=== PATIENT | female | born 1955 | race African-American/Black ===

== ENCOUNTER 2020-05-24 10:20 | Outpatient (CLI) | payer MEDICARE, MEDICAID, SELFPAY ==
[2020-05-24 10:44] LABS: Basophils Percent Auto 0.4 % (0.2-1.2); Eosinophils Absolute Auto 0.4 K/mm3 (0-0.3); Eosinophils Percent Auto 4.5 % (0-4.4); Hematocrit 23.5 % (37.0-47.0); Hemoglobin 7.1 g/dL (12.0-15.0); Immature Granulocyte Absolute 0.02 K/mm3 (0.00-0.031); Immature Granulocyte Percent A 0.2 % (0-0.5); Immature Reticulocyte Fraction 36.3 % (3.0-15.9); Lymphocytes Absolute Auto 2.01 K/mm3 (0.9-3.2); Lymphocytes Percent Auto 24.9 % (18.3-44.2); Mean Corpuscular HGB Conc 30.2 g/dl (32-36); Mean Corpuscular Hemoglobin 24.6 pg (26-34); Mean Corpuscular Volume 81.3 fl (80-100); Mean Platelet Volume 8.9 fl (7.4-10.4); Monocytes Absolute Auto 0.7 K/mm3 (0.1-0.6); Monocytes Percent Auto 8.1 % (2.6-8.5); Neutrophils Percent Auto 61.9 % (45.5-73.1); Platelet Count Result 348 k/mm3 (150-375); Red Blood Count 2.89 M/mm3 (4.2-5.4); Red Cell Distribution Width 16.5 % (11.5-14.5); Reticulocyte Hemoglobin Conten 24.7 pg (28.2-35.7); Reticulocyte Percent 1.67 % (0.7-4.3); Reticulocytes Absolute 0.05 B/L (32.2-175.7); White Blood Count 8.1 K/mm3 (4.5-10.0)
[2020-05-24 12:27] LABS: Iron 16 ug/dL (37-170)
[2020-05-24 12:33] LABS: Alanine Aminotransferase 9 U/L (4-35); Alkaline Phosphatase 128 U/L (38-126); Anion Gap 7 mmol/L (8-16); Aspartate Amino Transferase 18 U/L (14-36); Bilirubin,Total 0.3 mg/dL (0.2-1.3); Blood Urea Nitrogen 57 mg/dL (7-17); Calcium 9.7 mg/dL (8.4-10.2); Carbon Dioxide 28 mmol/L (22-30); Chloride 103 mmol/L (98-107); Estimated Glomerular Filt Rate 34; Glucose 108 mg/dL (65-105); Lactate Dehydrogenase 335 U/L (313-618); Potassium 5.2 mmol/L (3.4-5.0); Sodium 138 mmol/L (137-145)
[2020-05-24 12:37] LABS: Percent Iron Saturation 4 % (20-50)
[2020-05-24 13:07] LABS: Ferritin 8.36 ng/mL (11.1-264)
[2020-05-24 13:37] LABS: Folic Acid 9.4 ng/mL (2.76->20)
[2020-05-29 21:41] LABS: Erythropoietin (EPO) 90.5 mIU/mL (2.6-18.5)
== END 2020-05-24 10:21 | disposition home or self-care (01) ==
PROVIDERS: PCP Family Medicine; Visit Provider Internal Medicine Hematology & Oncology
DX: D64.9 Anemia, unspecified (principal)
CPT/HCPCS: 36415; 80053; 82607; 82668; 82728; 82746; 83540; 83550; 83615; 85025; 85046

== ENCOUNTER 2020-05-29 14:28 | Inpatient (IN) | payer MEDICARE, MEDICAID, SELFPAY ==
[2020-05-29] VITALS (8 sets, daily range): BP systolic 113–154; BP diastolic 58–76; PULSE 39–64; RESP 15–21; TEMP 35.9–36.8; O2SAT 98–100; BMI 42.4
--- NOTE | ~2020-05-29 | XR_ITS ---
EXAMINATION: XR chest 1V portable EXAM DATE: 05/29/2020 14:55 INDICATION: Episode of unresponsiveness. TECHNIQUE: Portable AP frontal chest x-ray was obtained. Comparison is made to prior examination from 07/23/2019. FINDINGS: Sternotomy wires are present without findings to suggest sternal dehiscence. There is mild cardiomegaly. No confluent consolidation, pneumothorax or pleural effusion suspected. There are mild bony degenerative changes. There is no significant interval change. IMPRESSION: 1. Cardiomegaly. Reviewed, dictated and finalized at location B. IMPRESSION: 1. Cardiomegaly.
--- NOTE | ~2020-05-29 | US_ITS ---
EXAMINATION: US renal BI EXAM DATE: 05/30/2020 08:42 INDICATION: Renal failure. TECHNIQUE: Multiple grayscale and Doppler images of the kidneys were obtained (by a technologist who performed the scan) and subsequently reviewed. There is no prior study for comparison. FINDINGS: Right kidney: There is normal contour and echogenicity. It measures 10.8 x 4.6 x 5.6 centimeters. T here are no focal renal lesions identified. There is no hydronephrosis. Left kidney: There is normal contour and echogenicity. It measures 10.0 x 4.7 x 5.5 centimeters. Th ere are no focal renal lesions identified. There is no hydronephrosis. Moreno catheter within a collapsed bladder. IMPRESSION: 1. Sonographically unremarkable kidneys. Reviewed, dictated and finalized at location B.
--- NOTE | ~2020-05-29 | CT_ITS ---
EXAMINATION: CT brain wo con DATE: 05/29/2020 14:39 INDICATION: Stroke protocol. Altered mental status. TECHNIQUE: Computed tomography (CT) of the head was performed without intravenous contrast. Sagittal and coronal reconstructions were performed. The mA was adjusted according to patient size. Iterative reconstruction technique was employed. The dose-length product was 605.33 mGy-cm. COMPARISON: None FINDINGS: No acute intracranial hemorrhage, acute infarction or abnormal extra axial fluid collection. There is minimal scattered white matter hypoattenuation consistent with chronic small vessel ischemic disease . Ventricles are normal and symmetric. No mass/mass effect. Changes of left intraocular lens replacem ent. Mild mucosal thickening in the left maxillary sinus. The orbits and mastoid air cells are normal . Intracranial calcified cerebral atherosclerosis is noted. IMPRESSION: 1. No acute intracranial process. 2. Minimal scattered white matter hypoattenuation consistent with chronic small vessel ischemic disea se. Reviewed, dictated and finalized at location A. IMPRESSION: 1. No acute intracranial process. 2. Minimal scattered white matter hypoattenuation consistent with chronic small vessel ischemic disease.
--- NOTE | 2020-05-29 14:30 | ED.SYNCOPE ---
HPI - Syncope General Chief Complaint: Suspected CVA Stated Complaint: ?CVA Time Seen by Provider: 05/29/20 14:29 Source: patient and EMS Mode of arrival: EMS Limitations: no limitations History of Present Illness HPI narrative: Patient is a 64-year-old female with a history of diastolic heart failure, previous CVA, GI bleed, anemia who presents for evaluation of syncopal episode. Patient was at a podiatry appointment and arrival this afternoon when she suddenly was noted to become unresponsive with garbled speech per staff. EMS was called, at the time of their arrival, patient was confused, lethargic. Glucose check was within normal limits. Patient was unable to provide any history at the time of EMS arrival. Vital signs are stable. No seizure-like activity noted per EMS. Patient transferred to this facility, noted to have large episode of emesis on the way in route. The time of my assessment, patient is alert and oriented to person, place, and to time. She is denying any pain. No headache, chest pain, lightheadedness or dizziness. No abdominal pain. She denies any shortness of breath. Patient does not recall these events. Related Data Home Medications Medication Instructions Recorded Confirmed Antoinette PatelikPen U-100 Insulin 25 unit SUBCUT QAM 07/23/19 05/29/20 albuterol sulfate [Ventolin HFA] 2 puff INHALATION Q4-6H 07/23/19 05/29/20 atorvastatin 20 mg PO DAILY 07/23/19 05/29/20 budesonide-formoterol [Symbicort] 2 puff INHALATION BID 07/23/19 05/29/20 furosemide 60 mg PO DAILY 07/23/19 05/29/20 gabapentin 300 mg PO TID 07/23/19 05/29/20 hydrocodone-acetaminophen 5 - 325 tablet PO Q6H PRN 07/23/19 05/29/20 isosorbide mononitrate 15 mg PO DAILY 07/23/19 05/29/20 metformin 1,000 mg PO BID 07/23/19 05/29/20 metoprolol tartrate 25 mg PO BID 07/23/19 05/29/20 apixaban 5 mg tablet 5 mg PO BID 04/24/20 05/29/20 Allergies Allergy/AdvReac Type Severity Reaction Status Date / Time No Known Allergies Allergy Unknown Verified 10/06/20 15:14 Review of Systems Review of Systems: Narrative: CONSTITUTIONAL: Denies fever CARDIOVASCULAR: Denies chest pain RESPIRATORY: Denies cough or dyspnea. GASTROINTESTINAL: Denies abdominal pain SKIN: Denies rash MUSCULOSKELETAL: Denies back pain NEUROLOGIC: Denies headache [facility] Past Medical History Medical History Acute blood loss anemia Anxiety Arthritis Blood in stool CHF (congestive heart failure) COPD (chronic obstructive pulmonary disease) Degenerative joint disease (DJD) of lumbar spine (~2019) Diabetes mellitus type 2 in obese H/O gastroesophageal reflux (GERD) History of heart attack Inflammatory arthritis (~1996) Myalgia Vitamin D deficiency Social History Social History Smoking packs per day: 0.5 Smoking cigarettes per day: 10.0 Years smoked: 50 Smoking pack-years: 25.00 Smoking status: Former smoker Tobacco type: cigarettes Smoking end date: 05/29/20 Additional smoking assessment comments: currently smokes a few cigarettes a week Alcohol intake: current Drinks per week: 2 Substance use: current Substance use type: painkillers Other substance usage details: NORCO TID-CHRONIC BACK PAIN Gender identity (if verbalized by the patient): Female Sexual Orientation (if Verbalized by the Patient): Straight or Heterosexual Spiritual care concerns: Yes (JEHOVAH WITNESS) Agree to blood products: No Exam Narrative: Exam Narrative: GENERAL: Awake, alert, conversant HEAD: Normocephalic, atraumatic. EYES: PERRLA and EOMI. ENT: Nares clear, no rhinorrhea or epistaxis. Mucous membranes moist. NECK: Supple. CHEST: No respiratory distress, breathing even and non labored HEART: Regular rate, sinus rhythm ABDOMEN:Non distended, non tender EXTREMITIES: Normal range of motion. No edema. SKIN: Warm, dry, no rash. NEURO:No focal deficits. Alert and
--- NOTE | 2020-05-29 14:31 | ECG_ITS ---
Measurements Intervals [place] Rate: 50 P: 44 DE: 182 QRS: -32 QRSD: 116 T: 38 QT: 490 QTc: 450 Interpretive Statements SINUS BRADYCARDIA WITH MARKED RHYTHM IRREGULARITY, POSSIBLE NON-CONDUCTED PAC, SA BLOCK, AV BLOCK, OR SINUS PAUSE ATRIAL PREMATURE COMPLEX LEFT AXIS DEVIATION INCOMPLETE RIGHT BUNDLE BRANCH BLOCK BORDERLINE ST-T WAVE ABNORMALITY- DIFFUSE LEADS BASELINE ARTIFACT- I, III, AVR, AVL, AVF ABNORMAL ECG Electronically Signed On 05-29-2020 15:04:34 CDT by Blayne Avendaño D.O.
[2020-05-29 14:48] LABS: Glucose Point of Care 252 (65-105)
[2020-05-29 14:54] LABS: Basophils Percent Auto 0.3 % (0.2-1.2); Eosinophils Absolute Auto 0.2 K/mm3 (0-0.3); Eosinophils Percent Auto 1.9 % (0-4.4); Immature Granulocyte Absolute 0.04 K/mm3 (0.00-0.031); Immature Granulocyte Percent A 0.4 % (0-0.5); Lymphocytes Absolute Auto 2.73 K/mm3 (0.9-3.2); Mean Corpuscular HGB Conc 30.1 g/dl (32-36); Mean Corpuscular Hemoglobin 24.9 pg (26-34); Mean Corpuscular Volume 82.7 fl (80-100); Mean Platelet Volume 9.6 fl (7.4-10.4); Monocytes Absolute Auto 0.8 K/mm3 (0.1-0.6); Monocytes Percent Auto 8.4 % (2.6-8.5); Neutrophils Absolute Auto 5.9 K/mm3 (1.3-6.7); Nucleated Red Blood Cells Perc 0.2 % (0.0-0.2); Platelet Count Result 353 k/mm3 (150-375); Red Blood Count 2.37 M/mm3 (4.2-5.4); Red Cell Distribution Width 16.7 % (11.5-14.5); White Blood Count 9.8 K/mm3 (4.5-10.0)
[2020-05-29 14:57] LABS: Hematocrit 19.6 % (37.0-47.0); Hemoglobin 5.9 g/dL (12.0-15.0)
--- NOTE | 2020-05-29 15:05 | PC.NURSE ---
Pt states she is unable to provide urine sample and is refusing straight cath at this time
[2020-05-29] MEDS: SODIUM CHLORIDE 0.9% IV 1,000 ML 999 ML IV CONT ×2 (15:13→15:34)
[2020-05-29] MEDS: ONDANSETRON INJ 4 MG/2 ML VIAL IV PUSH (15:13)
[2020-05-29 15:15] LABS: Alanine Aminotransferase 12 U/L (4-35); Alkaline Phosphatase 104 U/L (38-126); Anion Gap 15 mmol/L (8-16); Aspartate Amino Transferase 19 U/L (14-36); Bilirubin,Total 0.4 mg/dL (0.2-1.3); Blood Urea Nitrogen 87 mg/dL (7-17); Calcium 8.4 mg/dL (8.4-10.2); Carbon Dioxide 15 mmol/L (22-30); Chloride 98 mmol/L (98-107); Estimated CRCL calculation 14 ml/min; Estimated Glomerular Filt Rate 11; Glucose 239 mg/dL (65-105); Sodium 128 mmol/L (137-145)
[2020-05-29 15:18] LABS: Troponin I < 0.012 ng/mL (0.000-0.034)
[2020-05-29] MEDS: INSULIN HUMAN REGULAR (*BKC) 100 UNITS/ML 10 UNITS IV PUSH ×2 (15:34→23:13)
[2020-05-29] MEDS: CALCIUM GLUCONATE 1,000 MG/10 ML VIAL 2000 MG IV PUSH (15:34)
[2020-05-29] MEDS: DEXTROSE 50% 25 GM/50 ML SYRINGE IV PUSH ×2 (15:34→23:13)
[2020-05-29] MEDS: SODIUM BICARBONATE 8.4% 50 MEQ/50 ML VIAL IV PUSH (15:34)
[2020-05-29 16:12] LABS: NT Pro B Type Natriuretic Pept 9620 PG/ML (5-100)
[2020-05-29] MEDS: SODIUM POLYSTYRENE SULFONONATE 15 GM/60 ML BTL 30 GM PO (16:12)
[2020-05-29 16:43] LABS: INR 1.4; Prothrombin Time 16.3 Seconds (11.1-14.7)
[2020-05-29 16:44] LABS: Partial Thromboplastin Time 27.2 SECONDS (22.3-36.8)
[2020-05-29 16:46] LABS: D Dimer 0.41 ug/mL (<0.48)
[2020-05-29 16:47] LABS: Anion Gap 13 mmol/L (8-16); Blood Urea Nitrogen 87 mg/dL (7-17); Calcium 8.6 mg/dL (8.4-10.2); Carbon Dioxide 19 mmol/L (22-30); Chloride 99 mmol/L (98-107); Estimated CRCL calculation 14 ml/min; Estimated Glomerular Filt Rate 11; Glucose 230 mg/dL (65-105); Potassium 6.3 mmol/L (3.4-5.0); Sodium 131 mmol/L (137-145)
[2020-05-29 18:07] LABS: Glucose Point of Care 144 (65-105)
--- NOTE | 2020-05-29 18:10 | ADMGEN ---
This patient, Kandi Perez, was admitted to Intensive Care Unit-6. Patient/family oriented to hospital policies and general routines including ID bracelet, bed and alarms, visiting hours, pain management, procedures, bathroom and other care routines, personal items, smoking policy, room service/diet, and visiting hours. Valuables list has been completed. Information on how to activate the Rapid Response Team has been discussed. Patient/Family are encouraged to report perceived risks to care and to ask questions if they do not understand what they are told or what they should do.
[2020-05-29 21:58] LABS: Hemoglobin 6.3 g/dL (12.0-15.0)
[2020-05-29 21:59] LABS: Hematocrit 20.5 % (37.0-47.0)
[2020-05-29 22:10] LABS: Anion Gap 11 mmol/L (8-16); Blood Urea Nitrogen 88 mg/dL (7-17); Calcium 8.5 mg/dL (8.4-10.2); Carbon Dioxide 18 mmol/L (22-30); Chloride 102 mmol/L (98-107); Estimated CRCL calculation 14 ml/min; Estimated Glomerular Filt Rate 11; Glucose 148 mg/dL (65-105); Potassium 6.7 mmol/L (3.4-5.0); Sodium 131 mmol/L (137-145)
--- NOTE | 2020-05-29 23:00 | PM.IMHP ---
H&P: HPI History of Present Illness Date/Time: 05/29/20 20:00 Chief complaint: Unresponsive episode. Narrative: Kandi Perez is a very pleasant 64-year-old female, one of Jehovah's witnesses, with history of coronary artery disease, diastolic congestive heart failure, pulmonary hypertension, peripheral arterial disease, ?irregular heartbeat? on Eliquis, history of GI bleeding including secondary to AV malformations, chronic anemia, hypertension, hyperlipidemia, type 2 diabetes mellitus, chronic kidney disease, and several other comorbidities who presented to the emergency department earlier today via EMS from her doctor's office for evaluation after an unresponsive episode. She is not a great historian with regards what transpired this morning's as she really cannot remember much, and as such some of this history is obtained via a review of her electronic medical records. 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 On EMS arrival her glucose was 179 and she was noted to have several episodes of emesis en route to the hospital. A code stroke was called and she was sent directly to CT scan, with no evidence of stroke. She was found to have an acute kidney injury with a BUN and creatinine of 87 and 4.90 and is noted that her BUN and creatinine were 57 and 1.80 just 5 days ago. Her hemoglobin was 7.1 at that time and today it is 5.9. She has noticed maybe decreasing urine output just today but nothing significant. She tries to stay hydrated and reports normal color urine. She has not had difficulties urinating and has never had problems with urinary retention. No lightheadedness or dizziness. She also denies chest pain, pleuritic pain, and palpitations. She denies acute shortness of breath. No history of venous thromboembolism. Her last bowel movement was Thursday and she reports that it was somewhat soft and large but she denies noticing dark stools or blood in the stool. With further questioning she does mention that she was started on amoxicillin late last week for an earache, she is nearly finished with that antibiotic and her earache has since resolved. She has been taking Tylenol for her earache, and never takes NSAIDs. She was also prescribed pentoxifylline for right leg claudication per Dr. Dow (vascular surgery) last Thursday but she has yet to start that medication. She also mentions having intermittent tingling in her right foot and notes that it has a tendency to go cold on occasion. Also of note, she has been having joint pain and apparently had a positive SANG for which she saw a mattress maker, who feels that she likely does not have lupus given lack of other findings. Of note, she was bradycardic on arrival to the emergency department in the 30s, with improvement in her heart rate after hyperkalemia was treated. Review of Systems Review of Systems: Narrative: Twelve systems were reviewed with pertinent positives and negatives as per HPI. No fever, chills, or sweats. Her headache and earache have improved with taking the amoxicillin. She denies sick contacts and recent travel. No exposure to those positive for COVID-19. She denies chest pain and palpitations. With her last admission in July 2019 her Eliquis was stopped due to profound anemia and occult GI bleeding due to AVMs however she is back taking that medication for unclear reasons. She denies melena hematochezia. No hematemesis. She has intermittent issues with lower extremity edema but that has been well controlled on diuretics and she has been more mindful of her diet. She denies confusion. Except as documented, all other systems were reviewed and are negative. [facility] Past Medical History Medical History (Updated 05/30/20 @ 00:15 by Fabi Austin PA-C) Anxiety Arthritis Chronic anemia She is a patient of Dr. Goodson and has received Venofer and Epogen i
[2020-05-29] MEDS: ALBUTEROL SULFATE NEB 2.5 MG/0.5 ML INH 5 MG INHALATION (23:09)
[2020-05-29] MEDS: CALCIUM GLUC 1,000 MG/NS 50 ML 1,000 MG/50 ML BAG 100 MG IVPB (23:13)
[2020-05-30] VITALS (16 sets, daily range): BP systolic 117–139; BP diastolic 46–68; PULSE 54–90; RESP 14–20; TEMP 36.6–36.9; O2SAT 94–100
--- NOTE | 2020-05-30 | ECHO_ITS ---
Patient Info Name: Kandi Perez Age: 64 years : 1955 Gender: Female Ht: 65 in Wt: 258 lbs BSA: 2.38 m2 HR: 75 bpm BP: 137 / 51 mmHg Heart Rhythm: Sinus Rhythm Technical Quality: Good Exam Date: 05/30/2020 10:34 AM Exam Location: [facility] Patient Status: Inpatient Admit Date: 05/29/2020 Staff Ordering Physician: Alistair Crespo MD Buttoner: Solitario Escudero RDCS Attending Provider: Edgar Mccrary MD Exam Type: CA echo doppler color flow Study Info Indications I50.9 - Heart failure, unspecified Complete two-dimensional, color flow and Doppler transthoracic echocardiogram is performed. Strain analysis performed. History/Risk Factors HFpEF; CAD s/p 2vCABG, HTN, Dm2, pHTN, CKD, cardiomegaly, syncope, COPD. Summary 1. Complete two-dimensional, color flow and Doppler transthoracic echocardiogram is performed. 2. Left ventricular chamber size and systolic function are normal with no regional wall motion abnormalities with an estimated ejection fraction of 65-70%. Mild LVH. Grade 2 diastolic dysfunction is present. There is some flattening of the interventricular septum during diastole suggestive of right ventricular volume overload. 3. Right ventricular chamber dimension is mildly enlarged with normal contractility. 4. Left atrial chamber dimension is severely enlarged. 5. Right atrial chamber dimension is mildly enlarged. 6. There is mild mitral valve regurgitation. 7. There is mild to moderate tricuspid valve regurgitation. 8. Moderate pulmonary hypertension, estimated pulmonary arterial systolic pressure is 54 mmHg. 9. Dilated inferior vena cava with <50% collapse upon inspiration consistent with elevated right atrial pressure, 10 mmHg. 10. 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 11. Normal sinus rhythm. Left Ventricle Left ventricular chamber dimension is normal. Left ventricular systolic function is normal, estimated at 65-70%. There is no increased left ventricular wall thickness. Left ventricular septal wall motion is normal. The left ventricular diastolic function is grade II diastolic dysfunction. Global longitudinal strain is normal at 19 %. Left ventricular chamber size and systolic function are normal with no regional wall motion abnormalities with an estimated ejection fraction of 65-70%. Mild LVH. Grade 2 diastolic dysfunction is present. There is some flattening of the interventricular septum during diastole suggestive of right ventricular volume overload. Right Ventricle Right ventricular chamber dimension is mildly enlarged with normal contractility. Right ventricular systolic function is normal. Left Atria Left atrial chamber dimension is severely enlarged. Right Atria Right atrial chamber dimension is mildly enlarged. Aortic Valve The aortic valve is trileaflet. There is no aortic valve sclerosis. There is no aortic valve stenosis. There is no aortic valve regurgitation. Pulmonic Valve The pulmonic valve is normal. There is no pulmonic valve stenosis. There is no pulmonic regurgitation. Mitral Valve The mitral valve has normal leaflets. There is no mitral valve stenosis. There is mild mitral valve regurgitation. Tricuspid Valve The tricuspid valve leaflets are normal. There is no significant tricuspid valve stenosis. There is mild to moderate tricuspid valve regurgitation. Moderate pulmonary hypertension, estimated pulmonary arter
[2020-05-30 02:09] LABS: Potassium 5.5 mmol/L (3.4-5.0)
[2020-05-30] MEDS: ALBUTEROL SULFATE (*SP) AEROSOL 1 PUFF 2 PUFF INHALATION ×4 (02:19→19:17)
[2020-05-30 05:14] LABS: Mean Corpuscular Hemoglobin 24.4 pg (26-34); Mean Corpuscular Volume 81.5 fl (80-100); Mean Platelet Volume 10.1 fl (7.4-10.4); Platelet Count Result 339 k/mm3 (150-375); Red Blood Count 2.54 M/mm3 (4.2-5.4); Red Cell Distribution Width 16.6 % (11.5-14.5); White Blood Count 10.8 K/mm3 (4.5-10.0)
[2020-05-30 05:30] LABS: Hemoglobin 6.2 g/dL (12.0-15.0)
[2020-05-30 05:31] LABS: Hematocrit 20.7 % (37.0-47.0)
[2020-05-30 05:36] LABS: Anion Gap 14 mmol/L (8-16); Blood Urea Nitrogen 84 mg/dL (7-17); Calcium 8.8 mg/dL (8.4-10.2); Carbon Dioxide 19 mmol/L (22-30); Chloride 102 mmol/L (98-107); Estimated CRCL calculation 13 ml/min; Estimated Glomerular Filt Rate 10; Glucose 137 mg/dL (65-105); Potassium 5.1 mmol/L (3.4-5.0); Sodium 135 mmol/L (137-145)
[2020-05-30 07:01] LABS: Add Urine Microscopic? NO; Appearance Urine Clear (Clear); Bilirubin Urine Negative (Negative); Blood Urine Negative (Negative); Color Urine Yellow (Yellow); Glucose Urine UA Negative (Negative); Ketones Urine Negative (Negative); Leukocyte Esterase Ur Negative LEU/UL (Negative); Nitrate Urine Negative (Negative); Protein Urine Negative (Negative); Urobilinogen Urine Negative mg/dL (<2.0)
[2020-05-30] MEDS: ISOSORBIDE MONONITRATE 15 MG TAB.ER.24H PO (09:50)
[2020-05-30] MEDS: SODIUM POLYSTYRENE SULFONONATE 15 GM/60 ML BTL PO (09:50)
[2020-05-30] MEDS: SODIUM BICARBONATE 8.4% 150 MEQ in DEXTROSE 5% 1,000 ML 950 ML 50 MEQ IV CONT (09:50)
[2020-05-30] MEDS: PANTOPRAZOLE 40 MG TABLET PO ×2 (09:50→21:56)
[2020-05-30] MEDS: GABAPENTIN 300 MG CAPSULE PO ×3 (09:50→17:16)
[2020-05-30] MEDS: ATORVASTATIN 20 MG TABLET PO (09:50)
[2020-05-30] MEDS: SODIUM BICARBONATE TAB 650 MG TABLET PO ×2 (09:53→17:16)
--- NOTE | 2020-05-30 10:36 | PM.CNNEP ---
Assessment and Plan Assessment and plan (1) Acute on chronic renal failure: Code(s): N17.9 - Acute kidney failure, unspecified; N18.9 - Chronic kidney disease, unspecified Status: Acute Assessment and Plan: the patient has chronic kidney disease. This is probably due to diabetes hypertension and vascular disease. She is being followed by a protective signal repairer currently. Her baseline creatinine is around 2. the patient has acute kidney injury as well. It is unclear what is causing this. I think she might have some dehydration as she has not been eating or drinking for the last few days and has continued to take her diuretics. She also has worsened anemia in spite of dehydration. So could have some sort of GI bleeding process. this is being evaluated by Dr. Doyle. She could have other issues such as glomerulonephritis because she does have a diagnosis of inflammatory arthritis. I doubt if this is the case in this setting but we can check some labs. Obstruction is always a possibility so we will get a renal ultrasound. (2) Acute hyperkalemia: Code(s): E87.5 - Hyperkalemia Status: Acute Assessment and Plan: The patient Had a high potassium. Possibly this is from blood in her intestines and her renal failure. This is improved now with Kayexalate. (3) Acute on chronic anemia: Code(s): D64.9 - Anemia, unspecified Status: Acute Assessment and Plan: The patient has anemia. This is being evaluated by hospitalist. Eliquis has been held. (4) Syncope: Qualifiers: Syncope type: unspecified Qualified Code(s): R55 - Syncope and collapse Code(s): R55 - Syncope and collapse Status: Acute Assessment and Plan: This is being evaluated by the hospitalist. Possibly due to dehydration and/or anemia? (5) Type 2 diabetes mellitus: Code(s): E11.9 - Type 2 diabetes mellitus without complications Status: Acute Assessment and Plan: On Accu-Cheks and sliding-scale insulin (6) Chronic obstructive pulmonary disease: Code(s): J44.9 - Chronic obstructive pulmonary disease, unspecified Status: Acute Assessment and Plan: getting supportive care (7) Vitamin D deficiency: Code(s): E55.9 - Vitamin D deficiency, unspecified Status: Acute Assessment and Plan: we can check a vitamin-D level (8) Inflammatory arthritis: Onset Date: ~1996 Code(s): M19.90 - Unspecified osteoarthritis, unspecified site Status: Acute Assessment and Plan: will check serology History of Present Illness Reason for Consult Consult date: 05/30/20 Chief Complaint Chief complaint: Unresponsive episode. History of Present Illness Narrative: Kandi is a very pleasant 64-year-old lady who has multiple medical problems including hypertension, chronic kidney disease under the care of Dr. Alexander with a baseline creatinine of around 2, COPD, coronary disease status post heart attack and a 2 vessel bypass, paroxysmal atrial fibrillation on Eliquis, congestive heart failure of the diastolic type,degenerative joint disease, hyperlipidemia, arthritis, peripheral vascular disease, TIA, diabetes, vitamin-D deficiency. She is a Quaker and so refuses blood transfusion. The patient is a difficult historian because she is so sleepy since she was up all night. The patient was at the molder setter's office today and had an unresponsive episode. They called EMS. They called a code stroke. She came to the ER and had a CT scan which was negative. The ER doctor felt that this was not stroke symptoms. She did some blood work and found that her creatinine had risen to around 4 and her hemoglobin had fallen to about 5.9. The patient was given some IV fluids for dehydration and was admitted to the ICU.1 The patient says that she has not been eating very well for the last week or so. She says that she is o
--- NOTE | 2020-05-30 10:49 | WPDCNINT ---
Assessment and Plan Assessment and plan (1) Acute on chronic anemia: Code(s): D64.9 - Anemia, unspecified Status: Acute Assessment and Plan: patient has history of chronic anemia but hemoglobin 5.9 on presentation and 6.2 at this time she is Hindu and and does not want blood transfusion at this time. I have asked her if she would be against transfusion even in life-threatening situation like hemorrhage she and she told me she will talk to her daughter and get back to me but as of now she does not want any transfusion due to her anabaptism believes. patient has chronic kidney disease and likely has chronic anemia and may have GI blood loss also. Will discuss with Nephrology regarding starting Epogen patient told me that she had GI workup done earlier this year and as per patient her EGD was negative she had a capsule camera endoscopy which was also negative and she had 2 polyps removed from her colonoscope. no obvious signs of bleeding but she has positive stool Hemoccult and does admit to having black stools. Continue IV PPI GI has been consulted (2) Hyperkalemia: Code(s): E87.5 - Hyperkalemia Status: Acute Assessment and Plan: patient treated with IV insulin dextrose and calcium. Bicarb was given potassium level has decreased to 5.1 this morning I will give additional dose of Kayexalate. Patient is also on IV fluids with bicarb. Recheck BMP later today (3) Acute on chronic renal failure: Code(s): N17.9 - Acute kidney failure, unspecified; N18.9 - Chronic kidney disease, unspecified Status: Acute Assessment and Plan: patient told me she has stage 3-4 chronic kidney disease at baseline With creatinine around 2. Patient presented with acute kidney injury which could be secondary to hypovolemia. patient seen by Nephrology continue cautious IV fluids with bicarb to treat hypokalemia and acidosis p.o. bicarb renal ultrasound was done this morning and results are pending additional workup for renal cause of acute kidney injury were ordered by Dr. Ramos monitor urine output and electrolytes may need dialysis (4) Chronic obstructive pulmonary disease: Code(s): J44.9 - Chronic obstructive pulmonary disease, unspecified Status: Acute Assessment and Plan: arsh Rmaires (5) Gastroesophageal reflux disease: Code(s): K21.9 - Gastro-esophageal reflux disease without esophagitis Status: Acute Assessment and Plan: PPI (6) Hypertension: Code(s): I10 - Essential (primary) hypertension Status: Acute Assessment and Plan: on p.o. beta-keyana and Imdur (7) Type 2 diabetes mellitus: Code(s): E11.9 - Type 2 diabetes mellitus without complications Status: Acute Assessment and Plan: metformin has been discontinued due to rising creatinine level sliding scale insulin patient is currently NPO (8) Diastolic congestive heart failure: Code(s): I50.30 - Unspecified diastolic (congestive) heart failure Status: Acute Assessment and Plan: cautious IV fluids due to worsening renal failure (9) Syncope: Qualifiers: Syncope type: unspecified Qualified Code(s): R55 - Syncope and collapse Code(s): R55 - Syncope and collapse Status: Acute Assessment and Plan: Definitive etiology unclear but most likely secondary to hypertension which may have resulted from anemia, hypovolemia and bradycardia from her hyperkalemia. Patient currently asymptomatic and on telemetry monitoring with no arrhythmia except PVCs. No neurological deficit at this time, patient alert oriented x3 bradycardia has resolved and hyperkalemia has improved ECHO is ordered head CT was negative Additional Plan DVT prophylaxis - SCDs Stress ulcer prophylaxis - PPI Nutrition - NPO at this time Code Status - Full Code Lead Caregiver Consult Note Consult d
--- NOTE | 2020-05-30 13:58 | PCOTNOTE ---
Attempted OT evaluation, but unable to complete at this time as patient currently getting an IV placed. Will attempt again later.
[2020-05-30 14:41] LABS: Anion Gap 10 mmol/L (8-16); Blood Urea Nitrogen 79 mg/dL (7-17); Calcium 8.3 mg/dL (8.4-10.2); Carbon Dioxide 23 mmol/L (22-30); Chloride 101 mmol/L (98-107); Estimated CRCL calculation 14 ml/min; Estimated Glomerular Filt Rate 12; Glucose 228 mg/dL (65-105); Potassium 4.7 mmol/L (3.4-5.0); Sodium 134 mmol/L (137-145)
[2020-05-30 14:42] LABS: Creatine Kinase 72 U/L (30-135)
[2020-05-30 14:45] LABS: Erythrocyte Sedimentation Rate > 140 mm/hr (0-20)
--- NOTE | 2020-05-30 14:45 | PM.IMPN ---
Progress Note: A&P Assessment and Plan (1) Syncope: Qualifiers: Syncope type: unspecified Qualified Code(s): R55 - Syncope and collapse Code(s): R55 - Syncope and collapse Status: Acute Assessment and Plan: probable multifactorial including hypovolemia, anemia, bradycardia with the hyperkalemia. (2) Acute on chronic renal failure: Code(s): N17.9 - Acute kidney failure, unspecified; N18.9 - Chronic kidney disease, unspecified Status: Acute Assessment and Plan: Probable all pre renal. Continue aggressive hydration and hold diuretics renal sonogram obtained also (3) Acute on chronic anemia: Code(s): D64.9 - Anemia, unspecified Status: Acute Assessment and Plan: iron and ferritin and foul 24 of May compatible with iron deficiency anemia. Obviously probably has some degree of anemia chronic disease with her renal failure also. Will replace IV iron and discussed with nephrology about Epogen Eliquis not to be restarted (4) Bradycardia: Code(s): R00.1 - Bradycardia, unspecified Status: Acute Assessment and Plan: thought secondary to hyperkalemia and has resolved with normalization of potassium TSH ordered (5) Hyperkalemia: Code(s): E87.5 - Hyperkalemia Status: Acute Assessment and Plan: secondary to renal failure. Kayexalate as needed and hydration (6) Diastolic congestive heart failure: Code(s): I50.30 - Unspecified diastolic (congestive) heart failure Status: Acute Assessment and Plan: repeat echo pending. Watch fluid status with aggressive hydration and continue beta-keyana with nitrate (7) Type 2 diabetes mellitus: Code(s): E11.9 - Type 2 diabetes mellitus without complications Status: Acute Assessment and Plan: continue sliding scale and Lantus, hold oral hypoglycemics (8) Hypertension: Code(s): I10 - Essential (primary) hypertension Status: Acute Assessment and Plan: pressure fair control continue low-dose metoprolol (9) Gastroesophageal reflux disease: Code(s): K21.9 - Gastro-esophageal reflux disease without esophagitis Status: Acute Assessment and Plan: continue PPI especially in light of history of guaiac-positive stool in the past (10) Chronic obstructive pulmonary disease: Code(s): J44.9 - Chronic obstructive pulmonary disease, unspecified Status: Acute Assessment and Plan: continue inhalers (11) DVT prophylaxis: Code(s): Z29.9 - Encounter for prophylactic measures, unspecified Status: Acute Assessment and Plan: mechanical with degree of anemia Subjective Date/time seen: 05/30/20 14:45 Interval history: date of visit 05/30. 64-year-old hypertensive type 2 diabetic with chronic renal failure stage 3 admitted after syncopal episode found to be in acute on chronic renal failure with hyperkalemia and her usual anemia. Feels better this a.m. with no specific complaints other than being tired Exam Narrative: Exam Narrative: blood pressure 136/50 pulse 72 and regular sat 98% on room air lungs clear CV regular rate rhythm no murmurs or gallops abdomen soft nontender obese extremities without edema dorsalis pedis posterior tibial 1+ neuro drowsy but answering questions appropriately with no focal deficits Objective Data Vital Signs Vital Signs: Vital Signs - 24 hr 05/29/20 16:37 05/29/20 18:00 05/29/20 19:35 Temperature 36.6 C Pulse Rate 62 60 64 Respiratory Rate 18 19 Blood Pressure 154/74 H 138/76 Pulse Oximetry 98 99 05/29/20 19:43 05/29/20 22:00 05/29/20 23:10 Temperature 36.8 C 36.7 C Pulse Rate 64 53 L 54 L Respiratory Rate 18 16 15 Blood Pressure 131/64 125/58 L Pulse Oximetry 100 100 05/29/20 23:20 05/30/20 00:00 05/30/20 02:00 Temperature 36.6 C Pulse Rate 57 L 68 64 Respiratory Rate 18 14 15 Blood Pressure 13
[2020-05-30] MEDS: METOPROLOL TARTRATE 25 MG TABLET PO ×2 (14:49→21:56)
[2020-05-30 15:12] LABS: Complement C3 106 mg/dL (88-165); Parathyroid Intact 139.5 pg/mL (7.5-53.5)
--- NOTE | 2020-05-30 15:23 | WPDGICN ---
Assessment and Plan Assessment and plan (1) Acute on chronic anemia: Code(s): D64.9 - Anemia, unspecified Status: Acute Assessment and Plan: egd+colonoscopy only non-bleeding avm in colon destroyed with apc, no signs of bleeding then she had egd with capsule endoscopy 03/2020 at another hospital and apparently negative for bleeding (will get records) no need to repeat scopes but will get occult blood in stools and continue to monitor for signs of bleeding xarelto will need to be discontinued, main problem that because her latter-day she won't accept blood transfusion probably will benefit from epogen, will ask hematology to see anemia is also probably multifactorial (CKD, use of blood thinner, etc) (2) Acute on chronic renal failure: Code(s): N17.9 - Acute kidney failure, unspecified; N18.9 - Chronic kidney disease, unspecified Status: Acute Assessment and Plan: improving, nephrology on board (3) Syncope: Qualifiers: Syncope type: unspecified Qualified Code(s): R55 - Syncope and collapse Code(s): R55 - Syncope and collapse Status: Acute Assessment and Plan: resolved, probably multifactorial by primary team (4) Acute hyperkalemia: Code(s): E87.5 - Hyperkalemia Status: Acute Assessment and Plan: treated (5) Diastolic congestive heart failure: Code(s): I50.30 - Unspecified diastolic (congestive) heart failure Status: Acute GI Consult Note Consult date/time: 05/30/20 15:23 Reason for consult: acute on chronic anemia HPI: Kandi Perez is a 64 year old female who is known to me from previous hospitalization on when she was admitted with CHF exacerbation and also had anemia hb 6.5 and occult blood stools. I performed EGD that was normal, colonoscopy small polyps removed and had non-bleeding AVM in transverse colon treated with APC but no stigmata of bleeding. She is Jehovah's witnesses, also history of coronary artery disease, diastolic congestive heart failure, pulmonary hypertension, peripheral arterial disease, using Eliquis, chronic kidney disease stage 3. Apparently when she was at her doctor's office yesterday she suddenly had garbled speech, diaphoretic, weak, and she went unresponsive. On EMS arrival her glucose was 179, also had several episodes of emesis en route to the hospital. A code stroke was called and she was sent directly to CT scan, with no evidence of stroke. She was admitted with diagnosis of acute kidney injury with a BUN and creatinine of 87 and 4.90 (5 days ago her BUN and creatinine were 57 and 1.80). she also had chronic anemia, hemoglobin was 7.1 few days ago and yesterday 5.9. Also had hyperkalemia and admitted to ICU. She denies overt gib, no melena or blood in stools. She says that back in March she had EGD with small bowel capsule endoscopy because melena when she was in [facility]. She is still refusing to get blood transfusion. Review of Systems Constitutional: Constitutional: Reports fatigue and Denies headache(s) Eyes: Eyes: Denies blurry vision ENT: Reports Normal hearing present, Denies headache(s) and Denies neck pain Cardiovascular: Cardiovascular: Denies chest pain and Denies dyspnea Respiratory: Respiratory: Denies dyspnea Gastrointestinal: Gastrointestinal: Denies abdominal pain and Reports nausea Genitourinary: Genitourinary: Denies dysuria Musculoskeletal: Musculoskeletal: Denies neck pain Integumentary/Breasts: Skin/Breast: Denies dry skin Neurologic: Reports Normal hearing present, Denies headache(s) and Denies weakness Psychiatric: Psychiatric: Denies anxiety Endocrine: Endocrine: Denies change in body appearance Hematologic/Lymphatic: Comments: chronic anemia Allergic/Immunologic: Allergic/Immunologic: Denies urticaria PMFSH Past Medical History Medical History Anxiety Arthritis Chroni
[2020-05-30 16:05] LABS: Creatinine Urine 51.8 mg/dL; Total Protein Urine Random 29 mg/dL
[2020-05-30 16:19] LABS: Sodium Urine Random 47 meq/L
[2020-05-30 16:50] LABS: Vitamin D 25 Hydroxy 33.5 ng/mL
--- NOTE | 2020-05-30 18:30 | PC.NURSE ---
This patient, Kandi Perez, was transferred to [[id number]] on 05/30/20 at 1830. Personal belongings sent with patient. Belongings list checked and signed with receiving [ ]. Report given to [DUGLAS CABALLERO]. Appropriate documentation sent with patient.
--- NOTE | 2020-05-30 18:31 | PC.NURSE ---
This patient, Kandi Perez, was received from ICU on 05/30/20 at 1825. Personal belongings list checked and signed. Patient/family oriented to unit policies and routines
[2020-05-30 20:44] LABS: Glucose Point of Care 286 (65-105)
[2020-05-30] MEDS: INSULIN ASPART (*BKC) 100 UNITS/ML 6 UNITS SUB-Q (22:35)
[2020-05-30 23:48] LABS: Glucose Point of Care 268 (65-105)
[2020-05-31] VITALS (12 sets, daily range): BP systolic 119–137; BP diastolic 47–62; PULSE 66–110; RESP 14–18; TEMP 36.6–36.8; O2SAT 94–100
[2020-05-31 04:31] LABS: Glucose Point of Care 190 (65-105)
[2020-05-31 06:15] LABS: Basophils Percent Auto 0.2 % (0.2-1.2); Eosinophils Absolute Auto 0.2 K/mm3 (0-0.3); Eosinophils Percent Auto 1.9 % (0-4.4); Immature Granulocyte Absolute 0.08 K/mm3 (0.00-0.031); Immature Granulocyte Percent A 0.6 % (0-0.5); Lymphocytes Percent Auto 14.5 % (18.3-44.2); Mean Corpuscular HGB Conc 30.3 g/dl (32-36); Mean Corpuscular Hemoglobin 24.3 pg (26-34); Mean Platelet Volume 9.6 fl (7.4-10.4); Monocytes Absolute Auto 1.2 K/mm3 (0.1-0.6); Monocytes Percent Auto 9.3 % (2.6-8.5); Neutrophils Absolute Auto 9.1 K/mm3 (1.3-6.7); Neutrophils Percent Auto 73.5 % (45.5-73.1); Nucleated Red Blood Cells Absolute Auto 0.1 K/mm3 (0.0-0.012); Nucleated Red Blood Cells Perc 0.9 % (0.0-0.2); Platelet Count Result 320 k/mm3 (150-375); Red Blood Count 2.35 M/mm3 (4.2-5.4); Red Cell Distribution Width 16.7 % (11.5-14.5); White Blood Count 12.4 K/mm3 (4.5-10.0)
[2020-05-31 06:29] LABS: Hemoglobin 5.7 g/dL (12.0-15.0)
[2020-05-31 06:30] LABS: Hematocrit 18.8 % (37.0-47.0)
[2020-05-31 06:34] LABS: Albumin Level 3.7 g/dL (3.5-5.1); Anion Gap 12 mmol/L (8-16); Blood Urea Nitrogen 75 mg/dL (7-17); Calcium 8.2 mg/dL (8.4-10.2); Carbon Dioxide 24 mmol/L (22-30); Chloride 99 mmol/L (98-107); Estimated CRCL calculation 18 ml/min; Estimated Glomerular Filt Rate 14; Glucose 184 mg/dL (65-105); Phosphorus 5.2 mg/dL (2.5-4.5); Potassium 4.5 mmol/L (3.4-5.0); Sodium 135 mmol/L (137-145)
[2020-05-31 07:47] LABS: Glucose Point of Care 188 (65-105)
--- NOTE | 2020-05-31 08:13 | WPDGIPROGNO ---
Progress Note: A&P Assessment and Plan (1) Acute on chronic anemia: Code(s): D64.9 - Anemia, unspecified Status: Acute Assessment and Plan: probably is multifactorial (ckd, AOCD, use of blood thinners, etc) gi work up 07/2019 with egd and colonoscopy (only avm in colon), then again 03/2020 with egd and capsule endoscopy at outside facility (awaiting records) no need to repeat scopes unless obvious bleeding probably will benefit from epogen, continue with iron and ideally blood transfusion if she changes her mind. (2) Acute on chronic renal failure: Code(s): N17.9 - Acute kidney failure, unspecified; N18.9 - Chronic kidney disease, unspecified Status: Acute Assessment and Plan: nephrology on board, slowly improving work up in progress (3) Acute renal failure: Qualifiers: Acute renal failure type: unspecified Qualified Code(s): N17.9 - Acute kidney failure, unspecified Code(s): N17.9 - Acute kidney failure, unspecified Status: Acute (4) Syncope: Qualifiers: Syncope type: unspecified Qualified Code(s): R55 - Syncope and collapse Code(s): R55 - Syncope and collapse Status: Acute Assessment and Plan: multifactorial (roxy, severe anemia, etc) (5) CHF (congestive heart failure): Code(s): I50.9 - Heart failure, unspecified Status: Acute (6) Chronic obstructive pulmonary disease: Code(s): J44.9 - Chronic obstructive pulmonary disease, unspecified Status: Acute (7) 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 Denies gib, still feeling weak but refusing blood transfusion Review of Systems Review of Systems: All systems reviewed & are unremarkable except as noted in HPI and below Exam Const: General: comfortable and no acute distress HENMT: General nose exam: Normal nares present Eyes: General: appearance normal, both eyes and all related structures Neck: Neck: no JVD Resp: Auscultation: clear to auscultation bilaterally Cardio: Rate: regular rate Rhythm: regular rhythm GI: Inspection: non-distended GI Palp: Yes Soft to palpation and No Tenderness to palpation present (GI) Auscultation: normal bowel sounds Skin: General skin exam: pallor Neuro: General: gait normal Speech: normal speech Extrem: General: normal to inspection Psych: Mental Status: mental status grossly normal Objective Data Vital Signs Vital Signs: Vital Signs - 24 hr 05/30/20 10:00 05/30/20 12:00 05/30/20 14:00 Temperature 98.4 F Pulse Rate 73 74 78 Respiratory Rate 20 17 18 Blood Pressure 137/51 L 129/60 133/64 Pulse Oximetry 98 98 100 05/30/20 14:49 05/30/20 16:00 05/30/20 18:44 Temperature 98.2 F 97.9 F Pulse Rate 78 80 87 Respiratory Rate 18 18 Blood Pressure 129/50 L 136/46 L Pulse Oximetry 98 94 05/30/20 19:23 05/30/20 20:00 05/30/20 20:23 Temperature 97.9 F Pulse Rate 54 L 87 88 Respiratory Rate 18 14 Blood Pressure 139/50 L Pulse Oximetry 100 05/30/20 21:56 05/31/20 00:00 05/31/20 01:55 Temperature Pulse Rate 90 86 110 H Respiratory Rate 18 Blood Pressure Pulse Oximetry 05/31/20 04:26 05/31/20 04:40 Temperature 97.8 F Pulse Rate 81 83 Respiratory Rate 16 Blood Pressure 126/50 L Pulse Oximetry 95 Intake/Output Intake/Output: Intake & Output 05/28/20 05/29/20 05/30/20 05/31/20 23:59 23:59 23:59 23:59 Intake Total 835 913 Output Total 1999 800 Balance -1165 113 Meds/Results Medications: Active Medications Generic Name Dose Route Start Last Admin Trade
[2020-05-31] MEDS: PANTOPRAZOLE 40 MG TABLET PO ×2 (08:16→21:54)
[2020-05-31] MEDS: SODIUM BICARBONATE TAB 650 MG TABLET PO ×2 (08:16→16:32)
[2020-05-31] MEDS: ISOSORBIDE MONONITRATE 15 MG TAB.ER.24H PO (08:16)
[2020-05-31] MEDS: GABAPENTIN 300 MG CAPSULE PO ×3 (08:16→16:32)
[2020-05-31] MEDS: ATORVASTATIN 20 MG TABLET PO (08:18)
[2020-05-31] MEDS: METOPROLOL TARTRATE 25 MG TABLET PO ×2 (08:19→21:53)
[2020-05-31] MEDS: INSULIN GLARGINE (*BKC) 100 UNITS/ML 25 UNITS SUB-Q (08:21)
[2020-05-31] MEDS: ALBUTEROL SULFATE (*SP) AEROSOL 1 PUFF 2 PUFF INHALATION ×2 (08:58→21:53)
--- NOTE | 2020-05-31 08:58 | ECG_ITS ---
Measurements Intervals [place] Rate: 82 P: 48 ND: 174 QRS: 26 QRSD: 96 T: -58 QT: 397 QTc: 464 Interpretive Statements SINUS RHYTHM ATRIAL AND VENTRICULAR PREMATURE COMPLEXES INCOMPLETE RIGHT BUNDLE BRANCH BLOCK ST-T WAVE ABNORMALITY IN DIFFUSE LEADS- CONSIDER ISCHEMIA ABNORMAL ECG Electronically Signed On 05-31-2020 9:12:43 CDT by Blayne Avendaño D.O.
[2020-05-31 11:32] LABS: Glucose Point of Care 270 (65-105)
[2020-05-31] MEDS: INSULIN ASPART (*BKC) 100 UNITS/ML 10 UNITS SUB-Q (12:49)
[2020-05-31] MEDS: ASPIRIN 81 MG ENTERIC TABLET PO (12:53)
[2020-05-31] MEDS: SODIUM CHLORIDE 0.9% IV 1,000 ML 75 ML IV CONT (12:54)
[2020-05-31] MEDS: EPOETIN ALFA-EPBX 10,000 UNITS/ML VIAL 10000 UNITS SUB-Q (14:02)
--- NOTE | 2020-05-31 14:47 | PC.NURSE ---
On 05/31/20, the student, [Trinidad Perez [facility] nursing program director ], provided care and completed [employer] documentation on this patient. I have reviewed the student's documentation and agree with the findings.
--- NOTE | 2020-05-31 14:59 | PCOTNOTE ---
Attempted to see patient twice this pm, however patient sleeping soundly and did not disturb for this reason.
--- NOTE | 2020-05-31 15:12 | PM.IMPN ---
Progress Note: A&P Assessment and Plan (1) Syncope: Qualifiers: Syncope type: unspecified Qualified Code(s): R55 - Syncope and collapse Code(s): R55 - Syncope and collapse Status: Acute Assessment and Plan: probable multifactorial including hypovolemia, anemia, bradycardia with the hyperkalemia. PVC on moniter (2) Acute on chronic renal failure: Code(s): N17.9 - Acute kidney failure, unspecified; N18.9 - Chronic kidney disease, unspecified Status: Acute Assessment and Plan: Probable all pre renal. Continue aggressive hydration and hold diuretics renal sonogram no obstruction and creatinine decreased to 3.8 today (3) Acute on chronic anemia: Code(s): D64.9 - Anemia, unspecified Status: Acute Assessment and Plan: iron and ferritin and foul 24 of May compatible with iron deficiency anemia. Obviously probably has some degree of anemia chronic disease with her renal failure also. replacing IV iron and Epogen today 10,000 units subcu Eliquis not to be restarted (4) Bradycardia: Code(s): R00.1 - Bradycardia, unspecified Status: Acute Assessment and Plan: thought secondary to hyperkalemia and has resolved with normalization of potassium TSH normal (5) Hyperkalemia: Code(s): E87.5 - Hyperkalemia Status: Acute Assessment and Plan: secondary to renal failure. Kayexalate as needed and hydration 4.5 today (6) Diastolic congestive heart failure: Code(s): I50.30 - Unspecified diastolic (congestive) heart failure Status: Acute Assessment and Plan: repeat echo grade 2 diastolic dysfunction with EF of 65% Watch fluid status with aggressive hydration and continue beta-keyana with nitrate (7) Type 2 diabetes mellitus: Code(s): E11.9 - Type 2 diabetes mellitus without complications Status: Acute Assessment and Plan: continue sliding scale and Lantus, hold oral hypoglycemics (8) Hypertension: Code(s): I10 - Essential (primary) hypertension Status: Acute Assessment and Plan: pressure fair control continue low-dose metoprolol (9) Gastroesophageal reflux disease: Code(s): K21.9 - Gastro-esophageal reflux disease without esophagitis Status: Acute Assessment and Plan: continue PPI especially in light of history of guaiac-positive stool in the past (10) Chronic obstructive pulmonary disease: Code(s): J44.9 - Chronic obstructive pulmonary disease, unspecified Status: Acute Assessment and Plan: continue inhalers (11) DVT prophylaxis: Code(s): Z29.9 - Encounter for prophylactic measures, unspecified Status: Acute Assessment and Plan: mechanical with degree of anemia Subjective Date/time seen: 05/31/20 15:12 Interval history: date of visit 05/31. 64-year-old hypertensive type 2 diabetic with chronic renal failure stage 3 admitted after syncopal episode found to be in acute on chronic renal failure with hyperkalemia and her usual anemia. Feels better this a.m. but had episode of dull left arm pain and paresthesias Exam Narrative: Exam Narrative: blood pressure 136/48 pulse 90 and regular sat 94% on room air lungs clear CV regular rate rhythm no murmurs or gallops abdomen soft nontender obese extremities without edema dorsalis pedis posterior tibial 1+ neuro with no focal deficits Objective Data Vital Signs Vital Signs: Vital Signs - 24 hr 05/30/20 16:00 05/30/20 18:44 05/30/20 19:23 Temperature 36.8 C 36.6 C Pulse Rate 80 87 54 L Respiratory Rate 18 18 18 Blood Pressure 129/50 L 136/46 L Pulse Oximetry 98 94 05/30/20 20:00 05/30/20 20:23 05/30/20 21:56 Temperature 36.6 C Pulse Rate 87 88 90 Respiratory Rate 14 Blood Pressure 139/50 L Pulse Oximetry 100 05/31/20 00:00 05/31/20 01:55 05/31/20 04:26 Temperature 36.6 C Pulse Rate 8
--- NOTE | 2020-05-31 16:21 | PM.PNNEP ---
Progress Note: A&P Assessment and Plan (1) Acute on chronic renal failure: Code(s): N17.9 - Acute kidney failure, unspecified; N18.9 - Chronic kidney disease, unspecified Status: Acute Assessment and Plan: the patient has chronic kidney disease. This is probably due to diabetes hypertension and vascular disease. She is being followed by a emanations analysis technician currently. Her baseline creatinine is around 2. serologic evaluation is pending the patient has acute kidney injury as well. ultrasound is negative urine 'lytes are non prerenal creatinine is better continue ivfs for now (2) Acute hyperkalemia: Code(s): E87.5 - Hyperkalemia Status: Acute Assessment and Plan: resolved (3) Acute on chronic anemia: Code(s): D64.9 - Anemia, unspecified Status: Acute Assessment and Plan: The patient has anemia. This is being evaluated by hospitalist. Eliquis has been held. (4) Syncope: Qualifiers: Syncope type: unspecified Qualified Code(s): R55 - Syncope and collapse Code(s): R55 - Syncope and collapse Status: Acute Assessment and Plan: This is being evaluated by the hospitalist. Possibly due to dehydration and/or anemia? (5) Type 2 diabetes mellitus: Code(s): E11.9 - Type 2 diabetes mellitus without complications Status: Acute Assessment and Plan: On Accu-Cheks and sliding-scale insulin (6) Chronic obstructive pulmonary disease: Code(s): J44.9 - Chronic obstructive pulmonary disease, unspecified Status: Acute Assessment and Plan: getting supportive care (7) Vitamin D deficiency: Code(s): E55.9 - Vitamin D deficiency, unspecified Status: Acute Assessment and Plan: normal vitamin-D level (8) Inflammatory arthritis: Onset Date: ~1996 Code(s): M19.90 - Unspecified osteoarthritis, unspecified site Status: Acute Assessment and Plan: will check serology Subjective Date/time seen: 05/31/20 16:21 Interval history: alert. feels okay no cp or sob feel much better today resting comfortably lying flat in bed Review of Systems Cardiovascular: Cardiovascular: Reports no additional cardiovascular complaints Respiratory: Respiratory: Reports no additional respiratory complaints Gastrointestinal: Gastrointestinal: Reports no additional gastrointestinal complaints Genitourinary: Genitourinary: Reports no additional female genitourinary complaints Exam Narrative: Exam Narrative: WDWN in NAD skin no rash head ncat lungs clear cor reg no rub abd BS+ nontender and soft ext no edema. Objective Data Vital Signs Vital Signs: Vital Signs - 24 hr 05/30/20 18:44 05/30/20 19:23 05/30/20 20:00 Temperature 36.6 C Pulse Rate 87 54 L 87 Respiratory Rate 18 18 Blood Pressure 136/46 L Pulse Oximetry 94 05/30/20 20:23 05/30/20 21:56 05/31/20 00:00 Temperature 36.6 C Pulse Rate 88 90 86 Respiratory Rate 14 Blood Pressure 139/50 L Pulse Oximetry 100 05/31/20 01:55 05/31/20 04:26 05/31/20 04:40 Temperature 36.6 C Pulse Rate 110 H 81 83 Respiratory Rate 18 16 Blood Pressure 126/50 L Pulse Oximetry 95 05/31/20 08:00 05/31/20 08:19 05/31/20 08:55 Temperature 36.8 C Pulse Rate 90 90 94 Respiratory Rate 14 Blood Pressure 137/47 L Pulse Oximetry 94 05/31/20 12:00 Temperature Pulse Rate 88 Respiratory Rate Blood Pressure Pulse Oximetry Intake/Output Intake/Output: Intake & Output 05/28/20 05/29/20 05/30/20 05/31/20 23:59 23:59 23:59 23:59 Intake Total 835 2335 Output Total 1999 800 Balance -1165 1535 Meds/Results Medications: Active Medications Generic Name Dose Route Start Last Admin Trade Name Freq PRN Reason Stop Dose Admin Albuterol 2 puff 05/30/20 00:30 05/31/20 08:58 Proventil Hfa INHALATION 2 puff Q4-6H FANI Administration Aspirin
--- NOTE | 2020-05-31 16:57 | PDONCCN ---
HPI - Date of Consult Date/Time: 05/31/20 16:57 Requesting Physician: Edgar Mccrary MD Primary Care Provider: Geni Trevizo, - Consult Narrative Reason for consult: Normocytic anemia Narrative: Kandi Perez is a 64 year old female with history of chronic kidney stage 3 disease, coronary artery disease status post coronary artery bypass grafting, atrial fibrillation and COPD was brought into the ER by EMS after she was found to be unresponsive. She was seen in the office on May 24 for anemia and workup was ordered. Patient had extensive GI evaluation done that showed normal EGD in July 2019. Colonoscopy done at the same time showed internal hemorrhoids and AVM. We do capsule enteroscopy done in March came back unremarkable as well. She denies any bleeding but does have some dark stool. She has been taking oral iron. She was complaining of tiredness and fatigue. Patient is a Jehovah Witness and would not get any blood transfusion. Labs showed hemoglobin of 5.9. Labs from April 03 showed hemoglobin of 8.4. Review of Systems - Review of Systems All systems reviewed & are unremarkable except as noted in HPI and bel - Neurologic Reports system reviewed and no additional complaints, except as documented, Reports hearing normal, Denies headache(s), Denies weakness [facility] Medical History: Medical History (Last Updated 05/31/20 @ 08:14 by Jamie Márquez MD) Anxiety Arthritis Chronic anemia She is a patient of Dr. Goodson and has received Venofer and Epogen in the past, she refuses blood transfusion due to sikhism regions. Chronic back pain On hydrocodone p.r.n. Chronic obstructive pulmonary disease Coronary artery disease With history of OH, status post 2 vessel CABG. Degenerative joint disease (DJD) of lumbar spine Onset Date: ~2019 Diastolic congestive heart failure Echocardiogram in May 2018 showed normal left ventricular size and function with an ejection fraction of 65 to 70%, mildly increased LV thickness, grade 3 diastolic dysfunction, biatrial enlargement, [id number] mitral valve regurgitation and tricuspid valve regurgitation as well as moderate pulmonary hypertension with an estimated peak RVSP of 58 mmHg. Gastroesophageal reflux disease GI bleed Onset Date: ~07/2019 Secondary to AV malformations. 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 She has been seen by community service coordinator who does not feel at this time that she has lupus. Peripheral vascular disease Tobacco abuse Transient ischemic attack Onset Date: ~2000 Type 2 diabetes mellitus Complicated by peripheral neuropathy, retinopathy, and nephropathy. Vitamin D deficiency Surgical History: Surgical History (Last Reviewed 05/30/20 @ 10:53 by Alistair Crespo MD) History of coronary artery bypass graft x 2 Onset Date: ~1999 History of surgical procedure on eye proper using laser For diabetic retinopathy. History of vascular surgery Right lower extremity stents. Family History: Family History (Last Reviewed 05/30/20 @ 10:53 by Alistair Crespo MD) Mother Diabetes mellitus Family history of arthritis Family history of cardiovascular disease Hypertension Sibling Diabetes mellitus Family history of arthritis Family history of cardiovascular disease Hypertension Kidney failure Grandparent Diabetes mellitus - Social History Social History: Social History (Last Reviewed 05/30/20 @ 10:53 by Alistair Crespo MD) Gender Identity: Gender identity (if verbalized by the patient): Female Sexual Orientation: Sexual Orientation (if Verbalized by the Patient): Straight or Heterosexual Alcohol Use: Alcohol intake: current Drinks per week: 2 Substance Use: Substance use: never Others: Spiritual care concerns: Yes Spiritual care concerns comment: MARIA FERNANDA WITNESS
[2020-05-31 17:35] LABS: IFOB Positive Control Positive; Immunochemical Fecal Occult Bl Positive (N)
[2020-05-31] MEDS: CYANOCOBALAMIN INJ 1,000 MCG/ML VIAL 1000 MCG IM (18:13)
[2020-05-31 20:29] LABS: Glucose Point of Care 193 (65-105)
[2020-05-31 22:04] LABS: Glucose Point of Care 245 (65-105)
[2020-06-01] VITALS (10 sets, daily range): BP systolic 130–150; BP diastolic 54–62; PULSE 76–85; RESP 16–18; TEMP 36.2–36.8; O2SAT 95–100
[2020-06-01 06:30] LABS: Basophils Percent Auto 0.2 % (0.2-1.2); Eosinophils Absolute Auto 0.3 K/mm3 (0-0.3); Eosinophils Percent Auto 2.3 % (0-4.4); Immature Granulocyte Absolute 0.12 K/mm3 (0.00-0.031); Lymphocytes Absolute Auto 2.36 K/mm3 (0.9-3.2); Lymphocytes Percent Auto 19.2 % (18.3-44.2); Mean Corpuscular HGB Conc 29.9 g/dl (32-36); Mean Corpuscular Hemoglobin 24.4 pg (26-34); Mean Corpuscular Volume 81.5 fl (80-100); Monocytes Absolute Auto 1.1 K/mm3 (0.1-0.6); Monocytes Percent Auto 9.1 % (2.6-8.5); Neutrophils Absolute Auto 8.4 K/mm3 (1.3-6.7); Neutrophils Percent Auto 68.2 % (45.5-73.1); Nucleated Red Blood Cells Absolute Auto 0.1 K/mm3 (0.0-0.012); Nucleated Red Blood Cells Perc 0.8 % (0.0-0.2); Platelet Count Result 307 k/mm3 (150-375); Red Blood Count 2.05 M/mm3 (4.2-5.4); Red Cell Distribution Width 16.9 % (11.5-14.5); White Blood Count 12.3 K/mm3 (4.5-10.0)
[2020-06-01 06:54] LABS: Albumin Level 3.5 g/dL (3.5-5.1); Anion Gap 10 mmol/L (8-16); Blood Urea Nitrogen 73 mg/dL (7-17); Calcium 8.1 mg/dL (8.4-10.2); Carbon Dioxide 25 mmol/L (22-30); Chloride 101 mmol/L (98-107); Estimated CRCL calculation 21 ml/min; Estimated Glomerular Filt Rate 17; Glucose 241 mg/dL (65-105); Phosphorus 5.1 mg/dL (2.5-4.5); Potassium 4.2 mmol/L (3.4-5.0); Sodium 136 mmol/L (137-145)
[2020-06-01 07:10] LABS: Hematocrit 16.7 % (37.0-47.0); Platelet Estimate Adequate (Adequate)
[2020-06-01 07:11] LABS: Hypochromasia 2+ (NORMAL)
[2020-06-01 07:14] LABS: Troponin I 0.086 ng/mL (0.000-0.034)
--- NOTE | 2020-06-01 07:15 | PC.NURSE ---
Critical labs reported off during shift change to Pavithra RN. States will forward to physician on staff.
[2020-06-01 07:58] LABS: Glucose Point of Care 225 (65-105)
[2020-06-01] MEDS: INSULIN ASPART (*BKC) 100 UNITS/ML SUB-Q ×3 (08:00→17:05)
[2020-06-01] MEDS: INSULIN GLARGINE (*BKC) 100 UNITS/ML 25 UNITS SUB-Q (08:03)
[2020-06-01] MEDS: ALBUTEROL SULFATE (*SP) AEROSOL 1 PUFF 2 PUFF INHALATION ×3 (09:23→20:32)
[2020-06-01] MEDS: ASPIRIN 81 MG ENTERIC TABLET PO (09:44)
[2020-06-01] MEDS: GABAPENTIN 300 MG CAPSULE PO ×3 (09:44→17:09)
[2020-06-01] MEDS: ISOSORBIDE MONONITRATE 15 MG TAB.ER.24H PO (09:44)
[2020-06-01] MEDS: PANTOPRAZOLE 40 MG TABLET PO ×2 (09:44→20:20)
[2020-06-01] MEDS: SODIUM BICARBONATE TAB 650 MG TABLET PO ×2 (09:44→17:09)
[2020-06-01] MEDS: ATORVASTATIN 20 MG TABLET PO (09:44)
[2020-06-01] MEDS: METOPROLOL TARTRATE 25 MG TABLET PO ×2 (09:44→20:20)
[2020-06-01 11:56] LABS: Glucose Point of Care 321 (65-105)
--- NOTE | 2020-06-01 15:00 | PM.PNNEP ---
Progress Note: A&P Assessment and Plan (1) Acute on chronic renal failure: Code(s): N17.9 - Acute kidney failure, unspecified; N18.9 - Chronic kidney disease, unspecified Status: Acute Assessment and Plan: the patient has chronic kidney disease. This is probably due to diabetes hypertension and vascular disease. She is being followed by a remote sensing engineer currently. Her baseline creatinine is around 2. serologic evaluation is pending complements are normal. UA is bland. Urine eosinophils are negative. Urine electrolytes are non pre renal. ultrasound is negative creatinine is better continue ivfs for now (2) Acute hyperkalemia: Code(s): E87.5 - Hyperkalemia Status: Acute Assessment and Plan: resolved (3) Acute on chronic anemia: Code(s): D64.9 - Anemia, unspecified Status: Acute Assessment and Plan: The patient has anemia. This is being evaluated by hospitalist. Eliquis has been held. She had guaiac-positive stools. Dr. Kirk mixon is her GI doctor. He apparently did scopes from above and below in March. (4) Syncope: Qualifiers: Syncope type: unspecified Qualified Code(s): R55 - Syncope and collapse Code(s): R55 - Syncope and collapse Status: Acute Assessment and Plan: This is being evaluated by the hospitalist. Possibly due to dehydration and/or anemia? (5) Type 2 diabetes mellitus: Code(s): E11.9 - Type 2 diabetes mellitus without complications Status: Acute Assessment and Plan: On Accu-Cheks and sliding-scale insulin (6) Chronic obstructive pulmonary disease: Code(s): J44.9 - Chronic obstructive pulmonary disease, unspecified Status: Acute Assessment and Plan: getting supportive care (7) Vitamin D deficiency: Code(s): E55.9 - Vitamin D deficiency, unspecified Status: Acute Assessment and Plan: normal vitamin-D level (8) Inflammatory arthritis: Onset Date: ~1996 Code(s): M19.90 - Unspecified osteoarthritis, unspecified site Status: Acute Assessment and Plan: will check serology Subjective Date/time seen: 06/01/20 15:00 Interval history: alert. feels okay no cp or sob feel much better today Her daughter is in the room. Review of Systems Constitutional: Constitutional: Reports no additional constitutional complaints Eyes: Eyes: Reports no additional eye complaints ENT: Reports system reviewed and no additional complaints, except as documented Cardiovascular: Cardiovascular: Reports no additional cardiovascular complaints Respiratory: Respiratory: Reports no additional respiratory complaints Gastrointestinal: Gastrointestinal: Reports no additional gastrointestinal complaints Genitourinary: Genitourinary: Reports no additional female genitourinary complaints Musculoskeletal: Musculoskeletal: Reports no additional musculoskeletal complaints Integumentary/Breasts: Skin/Breast: Reports system reviewed and no additional complaints, except as docu Neurologic: Reports system reviewed and no additional complaints, except as documented Psychiatric: Psychiatric: Reports no additional psychiatric complaints Endocrine: Endocrine: Reports no additional endocrine complaints Exam Narrative: Exam Narrative: WDWN in NAD skin no rash head ncat lungs clear To auscultation cor reg no rub abd BS+ nontender and soft ext no edema. Objective Data Vital Signs Vital Signs: Vital Signs - 24 hr 05/31/20 16:00 05/31/20 19:57 05/31/20 20:19 Temperature 36.8 C 36.7 C Pulse Rate 86 66 79 Respiratory Rate 16 16 Blood Pressure 126/62 119/50 L Pulse Oximetry 100 95 05/31/20 21:53 06/01/20 00:00 06/01/20 04:11 Temperature Pulse Rate 84 81 80 Respiratory Rate Blood Pressure Pulse Oximetry 06/01/20 04:20 06/01/20 08:00 06/01/20 09:44 Temperature 36.3 C L Pulse
--- NOTE | 2020-06-01 15:47 | PM.IMPN ---
Progress Note: A&P Assessment and Plan (1) Syncope: Qualifiers: Syncope type: unspecified Qualified Code(s): R55 - Syncope and collapse Code(s): R55 - Syncope and collapse Status: Acute Assessment and Plan: probable multifactorial including hypovolemia, anemia, bradycardia with the hyperkalemia. PVC on moniter (2) Acute on chronic renal failure: Code(s): N17.9 - Acute kidney failure, unspecified; N18.9 - Chronic kidney disease, unspecified Status: Acute Assessment and Plan: Probable all pre renal. Continuehydration and hold diuretics renal sonogram no obstruction and creatinine decreased to 3.3 today (3) Acute on chronic anemia: Code(s): D64.9 - Anemia, unspecified Status: Acute Assessment and Plan: iron and ferritin 24 of May compatible with iron deficiency anemia. Obviously probably has some degree of anemia chronic disease with her renal failure also. replacing IV iron and Epogen per Hematology subcu 2x per week, b12 also added discussed with patient that her hemoglobin is approaching a critical level. Pain in her arm she had yesterday was thought to be cardiac in again because of low blood count. She may consider transfusion if hemoglobin dips below 5. Eliquis not to be restarted (4) Bradycardia: Code(s): R00.1 - Bradycardia, unspecified Status: Acute Assessment and Plan: thought secondary to hyperkalemia and has resolved with normalization of potassium TSH normal (5) Hyperkalemia: Code(s): E87.5 - Hyperkalemia Status: Acute Assessment and Plan: secondary to renal failure. Kayexalate as needed and hydration 4.2 today (6) Diastolic congestive heart failure: Code(s): I50.30 - Unspecified diastolic (congestive) heart failure Status: Acute Assessment and Plan: repeat echo grade 2 diastolic dysfunction with EF of 65% Watch fluid status with hydration and continue beta-keyana with nitrate (7) Type 2 diabetes mellitus: Code(s): E11.9 - Type 2 diabetes mellitus without complications Status: Acute Assessment and Plan: continue sliding scale and Lantus, hold oral hypoglycemics (8) Hypertension: Code(s): I10 - Essential (primary) hypertension Status: Acute Assessment and Plan: pressure fair control continue low-dose metoprolol (9) Gastroesophageal reflux disease: Code(s): K21.9 - Gastro-esophageal reflux disease without esophagitis Status: Acute Assessment and Plan: continue PPI especially in light of history of guaiac-positive stool in the past (10) Chronic obstructive pulmonary disease: Code(s): J44.9 - Chronic obstructive pulmonary disease, unspecified Status: Acute Assessment and Plan: continue inhalers (11) DVT prophylaxis: Code(s): Z29.9 - Encounter for prophylactic measures, unspecified Status: Acute Assessment and Plan: mechanical with degree of anemia Subjective Date/time seen: 06/01/20 15:47 Interval history: date of visit 06/01. 64-year-old hypertensive type 2 diabetic with chronic renal failure stage 3 admitted after syncopal episode found to be in acute on chronic renal failure with hyperkalemia and her usual anemia. Feels better this a.m. but had episode of dull left arm pain and paresthesias 05/31 with EKG changes, has not recurred Exam Narrative: Exam Narrative: blood pressure 130/60 pulse 80 and regular sat 95% on room air lungs clear CV regular rate rhythm no murmurs or gallops abdomen soft nontender obese extremities without edema dorsalis pedis posterior tibial 1+ neuro with no focal deficits Objective Data Vital Signs Vital Signs: Vital Signs - 24 hr 05/31/20 16:00 05/31/20 19:57 05/31/20 20:19 Temperature 36.8 C 36.7 C Pulse Rate 86 66 79 Respiratory Rate 16 16 Blood Pressure 126/62 119/50 L Pulse Oximetr
--- NOTE | 2020-06-01 16:31 | WPDONCPN ---
Progress Note: A/P - Additional Plan Multifactorial anemia. Patient has a history of chronic kidney stage 3 disease along with iron deficiency. Hemoglobin dropped to 5.0 form 5.7. This could be dilutional as well. Hemoccult stool is positive. Dr. Rea is following the patient. Patient may need repeat colonoscopy. We will continue iron infusion along with vitamin B12 injection. She has already received Procrit injection. Patient is a Jehovah Witness but decided to receive blood transfusion if hemoglobin dropped below 5. We will check CBC in the morning. Atrial fibrillation. Eliquis is on hold. - Time Spent With Patient Total time spent is greater than 50% in coordination of care (as documented) at patient's floor/unit and/or counseling patient: 15 - 25 minutes Subjective Interval history: Multifactorial anemia with anemia of chronic kidney disease and iron deficiency Review of Systems - Review of Systems Patient denies any excessive tiredness and fatigue. She complain of dark stool without any hematochezia. Denies any diarrhea and constipation. No other new complaint - Neurologic Reports system reviewed and no additional complaints, except as documented, Reports hearing normal, Denies headache(s), Denies weakness Exam Vital signs: Temp Pulse Resp BP Pulse Ox 36.8 C 85 18 147/62 H 100 06/01/20 16:00 06/01/20 16:00 06/01/20 16:00 06/01/20 16:00 06/01/20 16:00 Narrative: Lungs are clear to auscultation bilaterally Cardiovascular regular rate rhythm no murmurs Abdomen soft nontender nondistended bowel sounds are positive Extremities no edema PN: Objective Data - Labs CBC & Chem 7: 06/01/20 05:47 06/01/20 05:47 Labs: Laboratory Results - last 24 hr 05/30/20 05/31/20 05/31/20 15:17 16:31 17:19 WBC RBC Hgb Hct MCV MCH MCHC RDW Plt Count MPV Immature Gran % (Auto) Neut % (Auto) Lymph % (Auto) [place] % (Auto) Eos % (Auto) Baso % (Auto) Lymph # (Auto) [place] # (Auto) Eos # (Auto) Baso # (Auto) Abs Immat Gran (auto) Absolute Neuts (auto) Absolute Nucleated RBC Nucleated RBC % Platelet Estimate Hypochromasia Sodium Potassium Chloride Carbon Dioxide Anion Gap BUN Creatinine Estim Creat Clear Calc Estimated GFR Glucose POC Capillary Glucose 193 H Calcium Phosphorus Troponin I Albumin Urine Eosinophils see below Stl Occult Blood (IFOB) Positive H 05/31/20 06/01/20 06/01/20 21:56 05:47 05:47 WBC 12.3 H RBC 2.05 L Hgb 5.0 L* Hct 16.7 L* MCV 81.5 MCH 24.4 L MCHC 29.9 L RDW 16.9 H Plt Count 307 MPV 10.0 Immature Gran % (Auto) 1.0 H Neut % (Auto) 68.2 Lymph % (Auto) 19.2 [place] % (Auto) 9.1 H Eos % (Auto) 2.3 Baso % (Auto) 0.2 Lymph # (Auto) 2.36 [place] # (Auto) 1.1 H Eos # (Auto) 0.3 Baso # (Auto) 0.0 Abs Immat Gran (auto) 0.12 H Absolute Neuts (auto) 8.4 H Absolute Nucleated RBC 0.1 H Nucleated RBC % 0.8 H Platelet Estimate Adequate Hypochromasia 2+ Sodium 136 L Potassium 4.2 Chloride 101 Carbon Dioxide 25 Anion Gap 10 BUN 73 H Creatinine 3.30 H Estim Creat Clear Calc 21 Estimated GFR 17 L Glucose 241 H POC Capillary Glucose 245 H Calcium 8.1 L Phosphorus 5.1 H Troponin I Albumin 3.5 Urine Eosinophils Stl Occult Blood (IFOB) 06/01/20 06/01/20 06/01/20 05:47 07:46 11:53 WBC RBC Hgb Hct MCV MCH MCHC RDW Plt Count MPV Immature Gran % (Auto) Neut % (Auto) Lymph % (Auto) [place] % (Auto) Eos % (Auto) Baso % (Auto) Lymph # (Auto) [place] # (Auto) Eos # (Auto) Baso # (Auto) Abs Immat Gran (auto) Absolute Neuts (auto) Absolute Nucleated RBC Nucleated RBC % Platelet Estimate Hypochromas
[2020-06-01 16:51] LABS: Glucose Point of Care 301 (65-105)
--- NOTE | 2020-06-01 17:03 | WPDGIPROGNO ---
Progress Note: A&P Assessment and Plan (1) Acute on chronic anemia: Code(s): D64.9 - Anemia, unspecified Status: Acute Assessment and Plan: probably is multifactorial (ckd, AOCD, use of blood thinners, etc) 07/2019 egd and colonoscopy (only avm in colon, destroyed with apc) Finally I reviewed records from recent EGD and capsule endoscopy from Dr Oro on 04/07/2020, negative to explain anemia. FOBT positive but also can be explained by hemorrhoids and recent use of apixaban. 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 hematology on board (2) Acute on chronic renal failure: Code(s): N17.9 - Acute kidney failure, unspecified; N18.9 - Chronic kidney disease, unspecified Status: Acute Assessment and Plan: nephrology on board, slowly improving (3) Acute renal failure: Qualifiers: Acute renal failure type: unspecified Qualified Code(s): N17.9 - Acute kidney failure, unspecified Code(s): N17.9 - Acute kidney failure, unspecified Status: Acute (4) Syncope: Qualifiers: Syncope type: unspecified Qualified Code(s): R55 - Syncope and collapse Code(s): R55 - Syncope and collapse Status: Acute Assessment and Plan: multifactorial (roxy, severe anemia, etc) on admission (5) CHF (congestive heart failure): Code(s): I50.9 - Heart failure, unspecified Status: Acute (6) Chronic obstructive pulmonary disease: Code(s): J44.9 - Chronic obstructive pulmonary disease, unspecified Status: Acute (7) 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 Earlier had chest pain, now she is comfortable but still tired Review of Systems Review of Systems: All systems reviewed & are unremarkable except as noted in HPI and below Exam Const: General: comfortable and no acute distress Nutritional Appearance: obese HENMT: General nose exam: Normal nares present Eyes: General: appearance normal, both eyes and all related structures Neck: Neck: no JVD Resp: Auscultation: clear to auscultation bilaterally Cardio: Rate: regular rate Rhythm: regular rhythm GI: Inspection: non-distended GI Palp: Yes Soft to palpation Auscultation: normal bowel sounds Skin: General skin exam: pallor Neuro: General: gait normal Speech: normal speech Extrem: General: normal to inspection Psych: Mental Status: mental status grossly normal Objective Data Vital Signs Vital Signs: Vital Signs - 24 hr 05/31/20 19:57 05/31/20 20:19 05/31/20 21:53 Temperature 98.1 F Pulse Rate 66 79 84 Respiratory Rate 16 Blood Pressure 119/50 L Pulse Oximetry 95 06/01/20 00:00 06/01/20 04:11 06/01/20 04:20 Temperature 97.3 F L Pulse Rate 81 80 80 Respiratory Rate 18 Blood Pressure 130/60 Pulse Oximetry 95 06/01/20 08:00 06/01/20 09:44 06/01/20 12:00 Temperature Pulse Rate 83 76 85 Respiratory Rate 18 Blood Pressure Pulse Oximetry 95 06/01/20 16:00 Temperature 98.3 F Pulse Rate 85 Respiratory Rate 18 Blood Pressure 147/62 H Pulse Oximetry 100 Intake/Output Intake/Output: Intake & Output 05/29/20 05/30/20 05/31/20 06/01/20 23:59 23:59 23:59 23:59 Intake Total 839 8115 1141 Output Total 1999 759 [id number] [facility] [id number] Meds/Results Medications: Active Medications Generic Name Dose Route Start Last Admin Trade Name Freq PRN Reason Stop Dose Admin Albuterol 2 puff 05/30/20 00:30 06/01/20 13:53
[2020-06-01 20:50] LABS: Glucose Point of Care 332 (65-105)
[2020-06-01] MEDS: INSULIN ASPART (*BKC) 100 UNITS/ML 8 UNITS SUB-Q (22:16)
[2020-06-01] MEDS: SODIUM CHLORIDE 0.9% IV 1,000 ML 75 ML IV CONT (22:16)
[2020-06-02] VITALS (12 sets, daily range): BP systolic 108–154; BP diastolic 49–73; PULSE 73–83; RESP 18–20; TEMP 36.3–37; O2SAT 94–99
[2020-06-02 06:04] LABS: Basophils Percent Auto 0.2 % (0.2-1.2); Eosinophils Absolute Auto 0.4 K/mm3 (0-0.3); Eosinophils Percent Auto 2.7 % (0-4.4); Immature Granulocyte Percent A 1.4 % (0-0.5); Lymphocytes Absolute Auto 2.46 K/mm3 (0.9-3.2); Lymphocytes Percent Auto 17.3 % (18.3-44.2); Mean Corpuscular HGB Conc 29.9 g/dl (32-36); Mean Corpuscular Volume 83.5 fl (80-100); Mean Platelet Volume 10.4 fl (7.4-10.4); Monocytes Absolute Auto 1.1 K/mm3 (0.1-0.6); Monocytes Percent Auto 7.5 % (2.6-8.5); Neutrophils Absolute Auto 10.1 K/mm3 (1.3-6.7); Neutrophils Percent Auto 70.9 % (45.5-73.1); Nucleated Red Blood Cells Absolute Auto 0.1 K/mm3 (0.0-0.012); Nucleated Red Blood Cells Perc 0.9 % (0.0-0.2); Platelet Count Result 311 k/mm3 (150-375); Red Cell Distribution Width 17.1 % (11.5-14.5); White Blood Count 14.2 K/mm3 (4.5-10.0)
[2020-06-02 06:27] LABS: Hematocrit 16.7 % (37.0-47.0)
[2020-06-02 06:35] LABS: Albumin Level 3.4 g/dL (3.5-5.1); Anion Gap 9 mmol/L (8-16); Blood Urea Nitrogen 57 mg/dL (7-17); Calcium 8.4 mg/dL (8.4-10.2); Carbon Dioxide 25 mmol/L (22-30); Chloride 103 mmol/L (98-107); Estimated CRCL calculation 31 ml/min; Estimated Glomerular Filt Rate 27; Glucose 154 mg/dL (65-105); Phosphorus 3.4 mg/dL (2.5-4.5); Potassium 4.3 mmol/L (3.4-5.0); Sodium 137 mmol/L (137-145)
[2020-06-02] MEDS: ALBUTEROL SULFATE (*SP) AEROSOL 1 PUFF 2 PUFF INHALATION ×3 (08:05→19:15)
[2020-06-02] MEDS: METOPROLOL TARTRATE 25 MG TABLET PO ×2 (08:20→22:18)
[2020-06-02] MEDS: SODIUM BICARBONATE TAB 650 MG TABLET PO ×2 (08:20→17:06)
[2020-06-02] MEDS: ASPIRIN 81 MG ENTERIC TABLET PO (08:20)
[2020-06-02] MEDS: ATORVASTATIN 20 MG TABLET PO (08:20)
[2020-06-02] MEDS: ISOSORBIDE MONONITRATE 15 MG TAB.ER.24H PO (08:21)
[2020-06-02] MEDS: GABAPENTIN 300 MG CAPSULE PO ×3 (08:21→18:53)
[2020-06-02] MEDS: PANTOPRAZOLE 40 MG TABLET PO ×2 (08:21→22:18)
[2020-06-02] MEDS: INSULIN GLARGINE (*BKC) 100 UNITS/ML 25 UNITS SUB-Q (08:47)
--- NOTE | 2020-06-02 09:05 | PCOTNOTE ---
Attempted to see patient this am, however per RN, patient not feeling well at this time.
--- NOTE | 2020-06-02 09:39 | WPDGIPROGNO ---
Progress Note: A&P Assessment and Plan (1) Anemia: Qualifiers: Anemia type: unspecified type Qualified Code(s): D64.9 - Anemia, unspecified Code(s): D64.9 - Anemia, unspecified Status: Acute Assessment and Plan: Anemia peers to be multifactorial. Patient underwent recent evaluation by Dr. Kirk mixon over the last several months that was unremarkable. Previous history of AVM I would noted. But no active bleeding at this time. Stool Hemoccult could be from hemorrhoids. Continue to monitor hemoglobin closely. Likely a component is related to her kidney disease. 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 Occult blood in stool. Hopefully blood thinners can be minimized her discontinued. (5) Acute on chronic renal failure: Code(s): N17.9 - Acute kidney failure, unspecified; N18.9 - Chronic kidney disease, unspecified Status: Acute Subjective Date/time seen: 06/02/20 09:39 patient alert this morning. Complained of some soreness in her chest and shoulders. No obvious signs of GI bleeding identified. Review of Systems Review of Systems: All systems reviewed & are unremarkable except as noted in HPI and below Constitutional: Comments: Complains of shoulder pain today. Exam Narrative: Exam Narrative: Patient is alert and comfortable this morning. HEENT exam she is anicteric. Lungs are clear. Heart without murmur. Abdomen is obese bowel sounds are present soft and nontender. Objective Data Vital Signs Vital Signs: Vital Signs - 24 hr 06/01/20 09:44 06/01/20 12:00 06/01/20 16:00 Temperature 98.3 F Pulse Rate 76 85 76 Respiratory Rate 18 Blood Pressure 147/62 H Pulse Oximetry 100 06/01/20 20:00 06/01/20 20:11 06/01/20 20:20 Temperature 97.2 F L Pulse Rate 79 82 82 Respiratory Rate 16 Blood Pressure 150/54 H Pulse Oximetry 100 06/02/20 00:00 06/02/20 04:10 06/02/20 04:34 Temperature 97.5 F L Pulse Rate 79 80 81 Respiratory Rate 18 Blood Pressure 140/60 Pulse Oximetry 99 06/02/20 08:20 06/02/20 09:00 Temperature 97.8 F Pulse Rate 76 82 Respiratory Rate 20 Blood Pressure 108/49 L Pulse Oximetry 96 Intake/Output Intake/Output: Intake & Output 05/30/20 05/31/20 06/01/20 06/02/20 23:59 23:59 23:59 23:59 Intake Total 835 2575 3031 750 Output Total 1999 800 2350 600 Balance -1165 1775 681 150 Meds/Results Medications: Active Medications Generic Name Dose Route Start Last Admin Trade Name Freq PRN Reason Stop Dose Admin Albuterol 2 puff 05/30/20 00:30 06/02/20 08:05 Proventil Hfa INHALATION 2 puff Q4-6H FANI Administration Aspirin 81 mg 05/31/20 12:20 06/02/20 08:20 Aspirin 81 Mg Enteric Tablet PO 81 mg QAM FANI Administration Atorvastatin Calcium 20 mg 05/30/20 09:00 06/02/20 08:20 Lipitor PO 20 mg DAILY FANI Administration Budesonide/Formoterol Fumarate 2 puff 05/30/20 09:00 06/02/20 08:05 Symbicort 80-4.5 Mcg (*Sp) Inhaler INHALATION 2 puff BID FANI Administration Dextrose 12.5 gm 05/29/20 22:42 Dextrose 50% Syringe IV PUSH PRN PRN Hypoglycemia Protocol Gabapentin 300 mg 05/30/20 09:00 06/02/20 08:21 Neurontin PO 300 mg TID FANI Administration Glucagon 1 mg 05/29/20 22:42 Glucagon For Inj IM PRN PRN Hypoglycemia Protocol Glucose 15 gm 05/29/20 22:42 Glutose 15 PO PRN PRN Hypoglycemia Protocol Dextrose 1,000 mls @ 100 mls/hr 05/29/20 22:42 Dextrose 5% 1,000 Ml IVPB PRN PRN Hypoglycemia
--- NOTE | 2020-06-02 09:42 | PM.PNNEP ---
Progress Note: A&P Assessment and Plan (1) Acute on chronic renal failure: Code(s): N17.9 - Acute kidney failure, unspecified; N18.9 - Chronic kidney disease, unspecified Status: Acute Assessment and Plan: the patient has chronic kidney disease. This is probably due to diabetes hypertension and vascular disease. She is being followed by a news wire photo operator currently. Her baseline creatinine is around 2. serologic evaluation is pending complements are normal. UA is bland. Urine eosinophils are negative. Urine electrolytes are non pre renal. ultrasound is negative creatinine is better, back to the original creatinine. Will stop IV fluids. (2) Acute hyperkalemia: Code(s): E87.5 - Hyperkalemia Status: Acute Assessment and Plan: resolved (3) Acute on chronic anemia: Code(s): D64.9 - Anemia, unspecified Status: Acute Assessment and Plan: The patient has anemia. This is being evaluated by hospitalist. Eliquis has been held. She had guaiac-positive stools. Dr. Rea is consulting. start Epogen (4) Syncope: Qualifiers: Syncope type: unspecified Qualified Code(s): R55 - Syncope and collapse Code(s): R55 - Syncope and collapse Status: Acute Assessment and Plan: This is being evaluated by the hospitalist. (5) Type 2 diabetes mellitus: Code(s): E11.9 - Type 2 diabetes mellitus without complications Status: Acute Assessment and Plan: On Accu-Cheks and sliding-scale insulin (6) Chronic obstructive pulmonary disease: Code(s): J44.9 - Chronic obstructive pulmonary disease, unspecified Status: Acute Assessment and Plan: getting supportive care (7) Vitamin D deficiency: Code(s): E55.9 - Vitamin D deficiency, unspecified Status: Acute Assessment and Plan: normal vitamin-D level (8) Inflammatory arthritis: Onset Date: ~1996 Code(s): M19.90 - Unspecified osteoarthritis, unspecified site Status: Acute Assessment and Plan: will check serology pending Subjective Date/time seen: 06/02/20 09:42 Interval history: alert. feels okay no cp or sob She has developed a little bit of swelling. She is eating well. Review of Systems Cardiovascular: Cardiovascular: Reports no additional cardiovascular complaints Respiratory: Respiratory: Reports no additional respiratory complaints Gastrointestinal: Gastrointestinal: Reports no additional gastrointestinal complaints Genitourinary: Genitourinary: Reports no additional female genitourinary complaints Exam Narrative: Exam Narrative: WDWN in NAD skin no rash head ncat lungs clear To auscultation cor reg no rub abd BS+ nontender and soft ext Trace edema. Objective Data Vital Signs Vital Signs: Vital Signs - 24 hr 06/01/20 09:44 06/01/20 12:00 06/01/20 16:00 Temperature 36.8 C Pulse Rate 76 85 76 Respiratory Rate 18 Blood Pressure 147/62 H Pulse Oximetry 100 06/01/20 20:00 06/01/20 20:11 06/01/20 20:20 Temperature 36.2 C L Pulse Rate 79 82 82 Respiratory Rate 16 Blood Pressure 150/54 H Pulse Oximetry 100 06/02/20 00:00 06/02/20 04:10 06/02/20 04:34 Temperature 36.4 C L Pulse Rate 79 80 81 Respiratory Rate 18 Blood Pressure 140/60 Pulse Oximetry 99 06/02/20 08:20 06/02/20 09:00 Temperature 36.6 C Pulse Rate 76 82 Respiratory Rate 20 Blood Pressure 108/49 L Pulse Oximetry 96 Intake/Output Intake/Output: Intake & Output 05/30/20 05/31/20 06/01/20 06/02/20 23:59 23:59 23:59 23:59 Intake Total 835 2575 3031 750 Output Total 1999 800 2350 600 Balance -1165 1775 681 150 Meds/Results Medications: Active Medications Generic Name Dose Route Start Last Admin Trade Name Freq PRN Reason Stop Dose Admin Albuterol 2 puff 05/30/20 00:30 06/02/20 08:05 Proventil Hfa INHALATION 2
[2020-06-02 10:56] LABS: Iron 123 ug/dL (37-170)
[2020-06-02 11:11] LABS: Percent Iron Saturation 31 % (20-50)
[2020-06-02 11:59] LABS: Glucose Point of Care 145 (65-105)
[2020-06-02 12:13] LABS: Folic Acid 8.8 ng/mL (2.76->20); Vitamin B12 > 1000.0 pg/mL (239-931)
[2020-06-02 12:27] LABS: Glucose Point of Care 198 (65-105)
[2020-06-02] MEDS: EPOETIN ALFA-EPBX 10,000 UNITS/ML VIAL 10000 UNITS SUB-Q (15:09)
--- NOTE | 2020-06-02 15:26 | PM.IMPN ---
Progress Note: A&P Assessment and Plan (1) Syncope: Qualifiers: Syncope type: unspecified Qualified Code(s): R55 - Syncope and collapse Code(s): R55 - Syncope and collapse Status: Acute Assessment and Plan: probable multifactorial including hypovolemia, anemia, bradycardia with the hyperkalemia. PVC on moniter (2) Acute on chronic renal failure: Code(s): N17.9 - Acute kidney failure, unspecified; N18.9 - Chronic kidney disease, unspecified Status: Acute Assessment and Plan: Probable all pre renal. stop IV hydration and restart diuretic 06/03 renal sonogram no obstruction and creatinine decreased to 2.2 today (3) Acute on chronic anemia: Code(s): D64.9 - Anemia, unspecified Status: Acute Assessment and Plan: iron and ferritin 24 of May compatible with iron deficiency anemia. Obviously probably has some degree of anemia chronic disease with her renal failure also. replacing IV iron(1200mg) and Epogen subcu 3x per week, b12 also added discussed with patient that her hemoglobin is approaching a critical level. Pain in her arm she has had was thought to be cardiac and again because of low blood count. She may consider transfusion if hemoglobin dips below 5. Eliquis not to be restarted (4) Bradycardia: Code(s): R00.1 - Bradycardia, unspecified Status: Acute Assessment and Plan: thought secondary to hyperkalemia and has resolved with normalization of potassium TSH normal (5) Hyperkalemia: Code(s): E87.5 - Hyperkalemia Status: Acute Assessment and Plan: secondary to renal failure. Kayexalate as needed and hydration 4.3 today (6) Diastolic congestive heart failure: Code(s): I50.30 - Unspecified diastolic (congestive) heart failure Status: Acute Assessment and Plan: repeat echo grade 2 diastolic dysfunction with EF of 65% Watch fluid status with hydration and continue beta-keyana with nitrate, resume diuretic 06/03 (7) Type 2 diabetes mellitus: Code(s): E11.9 - Type 2 diabetes mellitus without complications Status: Acute Assessment and Plan: continue sliding scale and Lantus, hold oral hypoglycemics (8) Hypertension: Code(s): I10 - Essential (primary) hypertension Status: Acute Assessment and Plan: pressure fair control continue low-dose metoprolol (9) Gastroesophageal reflux disease: Code(s): K21.9 - Gastro-esophageal reflux disease without esophagitis Status: Acute Assessment and Plan: continue PPI especially in light of history of guaiac-positive stool in the past (10) Chronic obstructive pulmonary disease: Code(s): J44.9 - Chronic obstructive pulmonary disease, unspecified Status: Acute Assessment and Plan: continue inhalers (11) DVT prophylaxis: Code(s): Z29.9 - Encounter for prophylactic measures, unspecified Status: Acute Assessment and Plan: mechanical with degree of anemia Subjective Date/time seen: 06/02/20 15:26 Interval history: date of visit 06/02. 64-year-old hypertensive type 2 diabetic with chronic renal failure stage 3 admitted after syncopal episode found to be in acute on chronic renal failure with hyperkalemia and her usual anemia. Feels better this a.m. but had episode of dull left arm pain and paresthesias 05/31 with EKG changes, and another short episode this am Exam Narrative: Exam Narrative: blood pressure 110/50 pulse 82 and regular sat 96% on room air lungs clear CV regular rate rhythm no murmurs or gallops abdomen soft nontender obese extremities trace edema dorsalis pedis posterior tibial 1+ neuro with no focal deficits Objective Data Vital Signs Vital Signs: Vital Signs - 24 hr 06/01/20 16:00 06/01/20 20:00 06/01/20 20:11 Temperature 36.8 C 36.2 C L Pulse Rate 76 79 82 Respiratory Rate 18 16 Blood
[2020-06-02 16:50] LABS: Glucose Point of Care 239 (65-105)
[2020-06-02] MEDS: INSULIN ASPART (*BKC) 100 UNITS/ML SUB-Q (17:07)
[2020-06-02 20:25] LABS: Complement Total CH50 >60 U/mL (31-60)
[2020-06-02 21:26] LABS: Glucose Point of Care 270 (65-105)
[2020-06-03] VITALS (11 sets, daily range): BP systolic 122–161; BP diastolic 54–92; PULSE 70–99; RESP 16–18; TEMP 36.2–36.6; O2SAT 94–100
[2020-06-03] MEDS: ALBUTEROL SULFATE (*SP) AEROSOL 1 PUFF 2 PUFF INHALATION ×3 (02:06→19:57)
[2020-06-03 05:59] LABS: Albumin Level 3.6 g/dL (3.5-5.1); Anion Gap 9 mmol/L (8-16); Blood Urea Nitrogen 51 mg/dL (7-17); Calcium 8.7 mg/dL (8.4-10.2); Carbon Dioxide 25 mmol/L (22-30); Chloride 102 mmol/L (98-107); Estimated CRCL calculation 32 ml/min; Estimated Glomerular Filt Rate 29; Glucose 251 mg/dL (65-105); Potassium 4.6 mmol/L (3.4-5.0); Sodium 136 mmol/L (137-145)
[2020-06-03 06:19] LABS: Basophils Percent Auto 0.2 % (0.2-1.2); Eosinophils Absolute Auto 0.2 K/mm3 (0-0.3); Eosinophils Percent Auto 1.9 % (0-4.4); Immature Granulocyte Absolute 0.12 K/mm3 (0.00-0.031); Lymphocytes Absolute Auto 2.51 K/mm3 (0.9-3.2); Lymphocytes Percent Auto 19.9 % (18.3-44.2); Mean Corpuscular HGB Conc 28.7 g/dl (32-36); Mean Corpuscular Hemoglobin 25.2 pg (26-34); Mean Corpuscular Volume 87.8 fl (80-100); Mean Platelet Volume 10.6 fl (7.4-10.4); Monocytes Absolute Auto 1.2 K/mm3 (0.1-0.6); Monocytes Percent Auto 9.5 % (2.6-8.5); Neutrophils Absolute Auto 8.5 K/mm3 (1.3-6.7); Neutrophils Percent Auto 67.5 % (45.5-73.1); Nucleated Red Blood Cells Absolute Auto 0.1 K/mm3 (0.0-0.012); Nucleated Red Blood Cells Perc 1.1 % (0.0-0.2); Platelet Count Result 336 k/mm3 (150-375); Red Blood Count 2.22 M/mm3 (4.2-5.4); Red Cell Distribution Width 18.8 % (11.5-14.5); White Blood Count 12.6 K/mm3 (4.5-10.0)
[2020-06-03 06:22] LABS: Hematocrit 19.5 % (37.0-47.0); Hemoglobin 5.6 g/dL (12.0-15.0)
[2020-06-03 08:08] LABS: Glucose Point of Care 224 (65-105)
--- NOTE | 2020-06-03 08:09 | PM.PNNEP ---
Progress Note: A&P Assessment and Plan (1) Acute on chronic renal failure: Code(s): N17.9 - Acute kidney failure, unspecified; N18.9 - Chronic kidney disease, unspecified Status: Acute Assessment and Plan: the patient has chronic kidney disease. This is probably due to diabetes hypertension and vascular disease. She is being followed by a rap artist currently. Her baseline creatinine is around 2. serologic evaluation is pending complements are normal. UA is bland. Urine eosinophils are negative. Urine electrolytes are non pre renal. ultrasound is negative creatinine is back to the original creatinine. off IV fluids. (2) Acute hyperkalemia: Code(s): E87.5 - Hyperkalemia Status: Acute Assessment and Plan: resolved (3) Acute on chronic anemia: Code(s): D64.9 - Anemia, unspecified Status: Acute Assessment and Plan: The patient has anemia. This is being evaluated by hospitalist. Eliquis has been held. She had guaiac-positive stools. Dr. Rea is consulting. On Epogen. Hemoglobin up to 5.6 today (4) Syncope: Qualifiers: Syncope type: unspecified Qualified Code(s): R55 - Syncope and collapse Code(s): R55 - Syncope and collapse Status: Acute Assessment and Plan: This is being evaluated by the hospitalist. (5) Type 2 diabetes mellitus: Code(s): E11.9 - Type 2 diabetes mellitus without complications Status: Acute Assessment and Plan: On Accu-Cheks and sliding-scale insulin (6) Chronic obstructive pulmonary disease: Code(s): J44.9 - Chronic obstructive pulmonary disease, unspecified Status: Acute Assessment and Plan: getting supportive care (7) Vitamin D deficiency: Code(s): E55.9 - Vitamin D deficiency, unspecified Status: Acute Assessment and Plan: normal vitamin-D level (8) Inflammatory arthritis: Onset Date: ~1996 Code(s): M19.90 - Unspecified osteoarthritis, unspecified site Status: Acute Assessment and Plan: serology is pending Subjective Date/time seen: 06/03/20 08:09 Interval history: alert. feels okay no cp or sob lying flat in bed. She is eating well. Review of Systems Cardiovascular: Cardiovascular: Reports no additional cardiovascular complaints Respiratory: Respiratory: Reports no additional respiratory complaints Gastrointestinal: Gastrointestinal: Reports no additional gastrointestinal complaints Genitourinary: Genitourinary: Reports no additional female genitourinary complaints Exam Narrative: Exam Narrative: WDWN in NAD skin no rash or subcu nodules head ncat lungs clear To auscultation cor reg no rub abd BS+ nontender and soft ext Minimal edema Objective Data Vital Signs Vital Signs: Vital Signs - 24 hr 06/02/20 08:20 06/02/20 09:00 06/02/20 12:00 Temperature 36.6 C Pulse Rate 76 82 75 Respiratory Rate 20 Blood Pressure 108/49 L Pulse Oximetry 96 06/02/20 16:00 06/02/20 16:41 06/02/20 20:00 Temperature 36.3 C L Pulse Rate 76 73 79 Respiratory Rate 18 Blood Pressure 149/62 H Pulse Oximetry 98 06/02/20 21:21 06/02/20 22:18 06/03/20 00:00 Temperature 37.0 C Pulse Rate 83 76 79 Respiratory Rate 18 Blood Pressure 154/73 H Pulse Oximetry 94 06/03/20 04:23 Temperature Pulse Rate 99 Respiratory Rate Blood Pressure Pulse Oximetry Intake/Output Intake/Output: Intake & Output 05/31/20 06/01/20 06/02/20 06/03/20 23:59 23:59 23:59 23:59 Intake Total 2575 3031 2945 750 Output Total 800 2350 600 Balance 0692 558 3104 750 Meds/Results Medications: Active Medications Generic Name Dose Route Start Last Admin Trade Name Freq PRN Reason Stop Dose Admin Albuterol 2 puff 05/30/20 00:30 06/03/20 02:06 Proventil Hfa INHALATION 2 puff Q4-6H FANI Administration Aspirin 81 mg 10/0
[2020-06-03] MEDS: INSULIN ASPART (*BKC) 100 UNITS/ML SUB-Q ×3 (08:30→16:30)
[2020-06-03] MEDS: INSULIN GLARGINE (*BKC) 100 UNITS/ML 25 UNITS SUB-Q (08:34)
--- NOTE | 2020-06-03 09:01 | WPDGIPROGNO ---
Progress Note: A&P Additional Plan Patient comfortable at rest. She reports no additional bleeding. She denies abdominal pain. Physical exam reveals her to be alert. Abdomen is obese. Bowel sounds are present soft nontender with no organomegaly. Labs reveal hemoglobin 5.6, hematocrit 19.5, MCV 87. Impression 1. Profound anemia. Patient refuses transfusion be on anglican grounds. Plan is to continue Epogen. Etiology of anemia is likely multifactorial. Recent GI workup has been negative. There is a history of AVMs noted within the last year by EGD. Patient should avoid anticoagulation because of profound anemia. Subjective Date/time seen: 06/03/20 09:01 Objective Data Vital Signs Vital Signs: Vital Signs - 24 hr 06/02/20 12:00 06/02/20 16:00 06/02/20 16:41 Temperature 97.3 F L Pulse Rate 75 76 73 Respiratory Rate 18 Blood Pressure 149/62 H Pulse Oximetry 98 06/02/20 20:00 06/02/20 21:21 06/02/20 22:18 Temperature 98.6 F Pulse Rate 79 83 76 Respiratory Rate 18 Blood Pressure 154/73 H Pulse Oximetry 94 06/03/20 00:00 06/03/20 04:23 06/03/20 08:13 Temperature Pulse Rate 79 99 89 Respiratory Rate 18 Blood Pressure Pulse Oximetry Intake/Output Intake/Output: Intake & Output 05/31/20 06/01/20 06/02/20 06/03/20 23:59 23:59 23:59 23:59 Intake Total 2575 3031 2945 750 Output Total 800 2350 600 Balance 1637 044 6388 750 Meds/Results Medications: Active Medications Generic Name Dose Route Start Last Admin Trade Name Freq PRN Reason Stop Dose Admin Albuterol 2 puff 05/30/20 00:30 06/03/20 08:14 Proventil Hfa INHALATION 2 puff Q4-6H FANI Administration Aspirin 81 mg 05/31/20 12:20 06/02/20 08:20 Aspirin 81 Mg Enteric Tablet PO 81 mg QAM FANI Administration Atorvastatin Calcium 20 mg 05/30/20 09:00 06/02/20 08:20 Lipitor PO 20 mg DAILY FANI Administration Budesonide/Formoterol Fumarate 2 puff 05/30/20 09:00 06/03/20 08:14 Symbicort 80-4.5 Mcg (*Sp) Inhaler INHALATION 2 puff BID FANI Administration Dextrose 12.5 gm 05/29/20 22:42 Dextrose 50% Syringe IV PUSH PRN PRN Hypoglycemia Protocol Epoetin Raul-epbx 10,000 units 06/04/20 09:00 Epoetin Raul-Epbx 10,000 Units/Ml Vial SUB-Q [id number] FANI Furosemide 40 mg 06/03/20 09:00 Furosemide 40 Mg Tablet PO DAILY FANI Gabapentin 300 mg 05/30/20 09:00 06/02/20 18:53 Neurontin PO 300 mg TID FANI Administration Glucagon 1 mg 05/29/20 22:42 Glucagon For Inj IM PRN PRN Hypoglycemia Protocol Glucose 15 gm 05/29/20 22:42 Glutose 15 PO PRN PRN Hypoglycemia Protocol Dextrose 1,000 mls @ 100 mls/hr 05/29/20 22:42 Dextrose 5% 1,000 Ml IVPB PRN PRN Hypoglycemia Protocol Sodium Chloride 1,000 mls @ 75 mls/hr 05/31/20 12:35 06/02/20 18:54 Normal Saline Iv IV CONT Infused .[id number] FANI Infusion Acetaminophen 1,000 mg in 100 mls @ 400 mls/hr 06/03/20 02:26 Ofirmev 1,000 Mg Ivpb IVPB 06/04/20 02:27 Q6H PRN Pain Rated 4-6 Insulin Aspart 2 - 5 units 05/31/20 17:00 06/03/20 08:30 Insulin Aspart (*Bkc) 100 Units/Ml SUB-Q 2 units TIDWM FANI Administration Protocol Insulin Glargine 25 units 05/30/20 09:00 06/03/20 08:34 Lantus SUB-Q 25 units QAM FANI Administration Isosorbide Mononitrate 15 mg 05/30/20 09:00 06/02/20 08:21 Imdur PO 15 mg DAILY FANI Administration Metoprolol Tartrate 25 mg 05/30/20 01:00 06/02/20 22:18 Lopressor PO 25 mg Q12HR FANI Administration Ondansetron HCl 4 mg 05/29/20 15:36 Zofran Inj IV PUSH Q4H PRN Nausea Pantoprazole Sodium 40 mg 05/30/20 09:00 06/02/20 22:18 Protonix PO 40 mg Q12HR FANI Administration Sodium Bicarbonate 650 mg 05/30/20 09:00 06/02/20 17:06 Sodium Bicarbonate Tab PO 650 mg BID FANI Administration Radiolo
[2020-06-03] MEDS: FUROSEMIDE 40 MG TABLET PO (09:18)
[2020-06-03] MEDS: METOPROLOL TARTRATE 25 MG TABLET PO ×2 (09:19→21:04)
[2020-06-03] MEDS: SODIUM BICARBONATE TAB 650 MG TABLET PO ×2 (09:19→18:51)
[2020-06-03] MEDS: ISOSORBIDE MONONITRATE 15 MG TAB.ER.24H PO (09:19)
[2020-06-03] MEDS: PANTOPRAZOLE 40 MG TABLET PO ×2 (09:19→21:04)
[2020-06-03] MEDS: GABAPENTIN 300 MG CAPSULE PO ×3 (09:19→18:51)
[2020-06-03] MEDS: ATORVASTATIN 20 MG TABLET PO (09:19)
[2020-06-03] MEDS: ASPIRIN 81 MG ENTERIC TABLET PO (09:20)
[2020-06-03 12:14] LABS: Glucose Point of Care 218 (65-105)
--- NOTE | 2020-06-03 13:30 | PCPTNOTE ---
attempted to see pt for PT, pt declined due to listening to latter day service
--- NOTE | 2020-06-03 14:27 | PCOTNOTE ---
Attempted to see patient this pm, however patient declined. Upon entering, pt was having a Zoom meeting. Pt declined stating, Not today honey, I'm in a meeting with my catholic.
--- NOTE | 2020-06-03 14:48 | PM.IMPN ---
Progress Note: A&P Assessment and Plan (1) Syncope: Qualifiers: Syncope type: unspecified Qualified Code(s): R55 - Syncope and collapse Code(s): R55 - Syncope and collapse Status: Acute Assessment and Plan: probable multifactorial including hypovolemia, anemia, bradycardia with the hyperkalemia. PVC on moniter (2) Acute on chronic renal failure: Code(s): N17.9 - Acute kidney failure, unspecified; N18.9 - Chronic kidney disease, unspecified Status: Acute Assessment and Plan: Probable all pre renal. stopp IV hydration 07/03 and restarted diuretic 06/03 renal sonogram no obstruction and creatinine decreased to 2.1 today (3) Acute on chronic anemia: Code(s): D64.9 - Anemia, unspecified Status: Acute Assessment and Plan: iron and ferritin 24 of May compatible with iron deficiency anemia. Obviously probably has some degree of anemia chronic disease with her renal failure also. replaced IV iron(1200mg) and Epogen subcu 3x per week, b12 also added discussed with patient that her hemoglobin is approaching a critical level. Pain in her arm she has had , was thought to be cardiac and again because of low blood count. She may consider transfusion if hemoglobin dips below 5. At 5.6 today Eliquis not to be restarted (4) Bradycardia: Code(s): R00.1 - Bradycardia, unspecified Status: Acute Assessment and Plan: thought secondary to hyperkalemia and has resolved with normalization of potassium TSH normal (5) Hyperkalemia: Code(s): E87.5 - Hyperkalemia Status: Acute Assessment and Plan: secondary to renal failure. Kayexalate as needed and hydration 4.6 today (6) Diastolic congestive heart failure: Code(s): I50.30 - Unspecified diastolic (congestive) heart failure Status: Acute Assessment and Plan: repeat echo grade 2 diastolic dysfunction with EF of 65% Watch fluid status with hydration and continue beta-keyana with nitrate, resumed diuretic 06/03 (7) Type 2 diabetes mellitus: Code(s): E11.9 - Type 2 diabetes mellitus without complications Status: Acute Assessment and Plan: continue sliding scale and Lantus, holding oral hypoglycemics (8) Hypertension: Code(s): I10 - Essential (primary) hypertension Status: Acute Assessment and Plan: pressure fair control continue low-dose metoprolol (9) Gastroesophageal reflux disease: Code(s): K21.9 - Gastro-esophageal reflux disease without esophagitis Status: Acute Assessment and Plan: continue PPI especially in light of history of guaiac-positive stool in the past (10) Chronic obstructive pulmonary disease: Code(s): J44.9 - Chronic obstructive pulmonary disease, unspecified Status: Acute Assessment and Plan: continue inhalers (11) DVT prophylaxis: Code(s): Z29.9 - Encounter for prophylactic measures, unspecified Status: Acute Assessment and Plan: mechanical with degree of anemia Subjective Date/time seen: 06/03/20 14:48 Interval history: date of visit 06/03. 64-year-old hypertensive type 2 diabetic with chronic renal failure stage 3 admitted after syncopal episode found to be in acute on chronic renal failure with hyperkalemia and her usual anemia. Feels better this a.m. and no further episodes of chest pain or arm pain Exam Narrative: Exam Narrative: blood pressure 122/54 pulse 72 and regular sat 95% on room air lungs clear CV regular rate rhythm no murmurs or gallops abdomen soft nontender obese extremities trace edema dorsalis pedis posterior tibial 1+ neuro with no focal deficits Objective Data Vital Signs Vital Signs: Vital Signs - 24 hr 06/02/20 16:00 06/02/20 16:41 06/02/20 20:00 Temperature 36.3 C L Pulse Rate 76 73 79 Respiratory Rate 18 Blood Pressure 149/62 H Pulse Oximetry 98
[2020-06-03 16:38] LABS: Glucose Point of Care 222 (65-105)
[2020-06-03 21:18] LABS: Glucose Point of Care 300 (65-105)
[2020-06-03] MEDS: INSULIN ASPART (*BKC) 100 UNITS/ML 6 UNITS SUB-Q (21:32)
[2020-06-03 23:43] LABS: Kappa\\Lambda Light Chains 2.37 (0.26-1.65); Lambda Light Chain 46.4 mg/L (5.7-26.3)
[2020-06-04] VITALS: PULSE 78
[2020-06-04 04:00] VITALS: PULSE 76
[2020-06-04 06:17] LABS: Potassium 4.7 mmol/L (3.4-5.0)
[2020-06-04 06:21] LABS: Albumin Level 3.7 g/dL (3.5-5.1); Anion Gap 8 mmol/L (8-16); Blood Urea Nitrogen 51 mg/dL (7-17); Calcium 8.7 mg/dL (8.4-10.2); Carbon Dioxide 25 mmol/L (22-30); Chloride 103 mmol/L (98-107); Estimated CRCL calculation 31 ml/min; Estimated Glomerular Filt Rate 27; Glucose 173 mg/dL (65-105); Phosphorus 3.2 mg/dL (2.5-4.5); Sodium 136 mmol/L (137-145)
[2020-06-04 07:58] LABS: Glucose Point of Care 157 (65-105)
[2020-06-04 08:00] VITALS: PULSE 74
[2020-06-04 08:22] LABS: Basophils Percent Auto 0.4 % (0.2-1.2); Eosinophils Absolute Auto 0.3 K/mm3 (0-0.3); Eosinophils Percent Auto 2.6 % (0-4.4); Immature Granulocyte Absolute 0.16 K/mm3 (0.00-0.031); Immature Granulocyte Percent A 1.4 % (0-0.5); Lymphocytes Absolute Auto 2.49 K/mm3 (0.9-3.2); Lymphocytes Percent Auto 21.9 % (18.3-44.2); Mean Corpuscular HGB Conc 29.9 g/dl (32-36); Mean Corpuscular Hemoglobin 26.5 pg (26-34); Mean Corpuscular Volume 88.5 fl (80-100); Mean Platelet Volume 10.3 fl (7.4-10.4); Monocytes Absolute Auto 1.2 K/mm3 (0.1-0.6); Monocytes Percent Auto 10.2 % (2.6-8.5); Neutrophils Absolute Auto 7.2 K/mm3 (1.3-6.7); Neutrophils Percent Auto 63.5 % (45.5-73.1); Nucleated Red Blood Cells Absolute Auto 0.1 K/mm3 (0.0-0.012); Nucleated Red Blood Cells Perc 1.1 % (0.0-0.2); Platelet Count Result 284 k/mm3 (150-375); Red Cell Distribution Width 21.2 % (11.5-14.5); White Blood Count 11.4 K/mm3 (4.5-10.0)
[2020-06-04 08:28] LABS: Hematocrit 17.7 % (37.0-47.0); Hemoglobin 5.3 g/dL (12.0-15.0)
[2020-06-04] MEDS: FUROSEMIDE 40 MG TABLET PO (08:44)
[2020-06-04] MEDS: ISOSORBIDE MONONITRATE 15 MG TAB.ER.24H PO (08:44)
[2020-06-04] MEDS: PANTOPRAZOLE 40 MG TABLET PO (08:45)
[2020-06-04] MEDS: ASPIRIN 81 MG ENTERIC TABLET PO (08:45)
[2020-06-04] MEDS: GABAPENTIN 300 MG CAPSULE PO ×3 (08:45→16:14)
[2020-06-04] MEDS: SODIUM BICARBONATE TAB 650 MG TABLET PO ×2 (08:45→16:13)
[2020-06-04] MEDS: ATORVASTATIN 20 MG TABLET PO (08:45)
[2020-06-04 08:46] VITALS: PULSE 74
[2020-06-04] MEDS: METOPROLOL TARTRATE 25 MG TABLET PO (08:46)
[2020-06-04] MEDS: INSULIN GLARGINE (*BKC) 100 UNITS/ML 25 UNITS SUB-Q (08:47)
[2020-06-04] MEDS: EPOETIN ALFA-EPBX 10,000 UNITS/ML VIAL 10000 UNITS SUB-Q (09:12)
--- NOTE | 2020-06-04 09:42 | WPDGIPROGNO ---
Progress Note: A&P Additional Plan Patient alert and comfortable today. No additional blood loss reported. Patient comfortable denies abdominal pain. Physical exam reveals patient to be alert. Vital signs are stable. Lungs are clear. Heart without murmur. Abdomen obese, bowel sounds present soft nontender. Labs reveal hemoglobin 5.3, hematocrit 17.7, MCV 88. Impression 1. Chronic anemia. History of gastric AVM. Recent GI workup including small bowel capsule study was unremarkable. Suggest this is multifactorial. No obvious active GI blood loss identified. Dr. Rea for will return in the morning and resume care. Patient refuses transfusion on episcopalian grounds. Continue monitor hemoglobin. Epogen is been started. Subjective Date/time seen: 06/04/20 09:42 Objective Data Vital Signs Vital Signs: Vital Signs - 24 hr 06/03/20 12:00 06/03/20 14:00 06/03/20 16:00 Temperature 97.2 F L Pulse Rate 73 72 88 Respiratory Rate 18 Blood Pressure 122/54 L Pulse Oximetry 100 06/03/20 20:00 06/03/20 20:11 06/03/20 21:04 Temperature 97.9 F Pulse Rate 72 72 76 Respiratory Rate 16 Blood Pressure 161/92 H Pulse Oximetry 95 06/04/20 00:00 06/04/20 04:00 06/04/20 08:00 Temperature Pulse Rate 78 76 74 Respiratory Rate Blood Pressure Pulse Oximetry 06/04/20 08:46 Temperature Pulse Rate 74 Respiratory Rate Blood Pressure Pulse Oximetry Intake/Output Intake/Output: Intake & Output 06/01/20 06/02/20 06/03/20 06/04/20 23:59 23:59 23:59 23:59 Intake Total 3031 2945 1989 920 Output Total 2350 600 600 Balance 681 2345 1989 320 Meds/Results Medications: Active Medications Generic Name Dose Route Start Last Admin Trade Name Freq PRN Reason Stop Dose Admin Albuterol 2 puff 05/30/20 00:30 06/03/20 19:57 Proventil Hfa INHALATION 2 puff Q4-6H FANI Administration Aspirin 81 mg 05/31/20 12:20 06/04/20 08:45 Aspirin 81 Mg Enteric Tablet PO 81 mg QAM FANI Administration Atorvastatin Calcium 20 mg 05/30/20 09:00 06/04/20 08:45 Lipitor PO 20 mg DAILY FANI Administration Budesonide/Formoterol Fumarate 2 puff 05/30/20 09:00 06/03/20 19:58 Symbicort 80-4.5 Mcg (*Sp) Inhaler INHALATION 2 puff BID FANI Administration Dextrose 12.5 gm 05/29/20 22:42 Dextrose 50% Syringe IV PUSH PRN PRN Hypoglycemia Protocol Epoetin Raul-epbx 10,000 units 06/04/20 09:00 06/04/20 09:12 Epoetin Raul-Epbx 10,000 Units/Ml Vial SUB-Q 10,000 units [id number] FANI Administration Furosemide 40 mg 06/03/20 09:00 06/04/20 08:44 Furosemide 40 Mg Tablet PO 40 mg DAILY FANI Administration Gabapentin 300 mg 05/30/20 09:00 06/04/20 08:45 Neurontin PO 300 mg TID FANI Administration Glucagon 1 mg 05/29/20 22:42 Glucagon For Inj IM PRN PRN Hypoglycemia Protocol Glucose 15 gm 05/29/20 22:42 Glutose 15 PO PRN PRN Hypoglycemia Protocol Dextrose 1,000 mls @ 100 mls/hr 05/29/20 22:42 Dextrose 5% 1,000 Ml IVPB PRN PRN Hypoglycemia Protocol Insulin Aspart 2 - 5 units 05/31/20 17:00 06/04/20 08:10 Insulin Aspart (*Bkc) 100 Units/Ml SUB-Q Not Given TIDWM [facility] Protocol Insulin Glargine 25 units 05/30/20 09:00 06/04/20 08:47 Lantus SUB-Q 25 units QAM FANI Administration Isosorbide Mononitrate 15 mg 05/30/20 09:00 06/04/20 08:44 Imdur PO 15 mg DAILY FANI Administration Metoprolol Tartrate 25 mg 05/30/20 01:00 06/04/20 08:46 Lopressor PO 25 mg Q12HR FANI Administration Ondansetron HCl 4 mg 05/29/20 15:36 Zofran Inj IV PUSH Q4H PRN Nausea Pantoprazole Sodium 40 mg 05/30/20 09:00 06/04/20 08:45 Protonix PO 40 mg Q12HR FANI Administration Sodium Bicarbonate 650 mg 05/30/20 09:00 06/04/20 08:45 Sodium Bicarbonate Tab PO 650 mg BID FANI Administration Radiolo
[2020-06-04 11:31] VITALS: BP 124/48; PULSE 69; O2SAT 100
[2020-06-04 11:33] LABS: Glucose Point of Care 230 (65-105)
[2020-06-04] MEDS: INSULIN ASPART (*BKC) 100 UNITS/ML SUB-Q (11:34)
[2020-06-04] MEDS: ACETAMINOPHEN 325 MG TABLET 650 MG PO (16:12)
--- NOTE | 2020-06-08 10:40 | PM.DS ---
DS: Admitting Diagnosis Admitting Diagnosis Admitting Diagnosis: Syncope, Anemia, Hyperkalemia, Acute renal failure DS: Discharge Diagnosis Discharge Diagnosis (1) Syncope: Qualifiers: Syncope type: unspecified Qualified Code(s): R55 - Syncope and collapse Code(s): R55 - Syncope and collapse Status: Acute Assessment and Plan: probable multifactorial including hypovolemia, anemia, bradycardia with the hyperkalemia. no arrythmia on moniter here after correction of K (2) Acute on chronic renal failure: Code(s): N17.9 - Acute kidney failure, unspecified; N18.9 - Chronic kidney disease, unspecified Status: Acute Assessment and Plan: Probable all pre renal. stopped IV hydration 07/03 and restarted diuretic 06/03 renal sonogram no obstruction and creatinine decreased to 2.2 at d/c her baseline (3) Acute on chronic anemia: Code(s): D64.9 - Anemia, unspecified Status: Acute Assessment and Plan: iron and ferritin 24 of May compatible with iron deficiency anemia. Obviously probably has some degree of anemia chronic disease with her renal failure also. replaced IV iron(1200mg) and Epogen subcu 3x per week, b12 also added discussed with patient that her hemoglobin is approaching a critical level. Pain in her arm she has had , was thought to be cardiac and again because of low blood count. She may consider transfusion if hemoglobin dips below 5. remained stable above 5 and 5.3 day of discharge with repeat cbc planned for 1 week. recent GI evaluation upper AV malformations and GI felt no further investigation at present time Eliquis not to be restarted (4) Bradycardia: Code(s): R00.1 - Bradycardia, unspecified Status: Acute Assessment and Plan: thought secondary to hyperkalemia and has resolved with normalization of potassium TSH normal (5) Hyperkalemia: Code(s): E87.5 - Hyperkalemia Status: Acute Assessment and Plan: secondary to renal failure. stable and 4.7 at d/c (6) Diastolic congestive heart failure: Code(s): I50.30 - Unspecified diastolic (congestive) heart failure Status: Acute Assessment and Plan: repeat echo grade 2 diastolic dysfunction with EF of 65% continue beta-keyana with nitrate, resumed diuretic 06/03 (7) Type 2 diabetes mellitus: Code(s): E11.9 - Type 2 diabetes mellitus without complications Status: Acute Assessment and Plan: continue sliding scale and Lantus, while inpatient and increase Lantus to 35 units at d/c with d/c of metformin (8) Hypertension: Code(s): I10 - Essential (primary) hypertension Status: Acute Assessment and Plan: pressure fair control continue low-dose metoprolol (9) Gastroesophageal reflux disease: Code(s): K21.9 - Gastro-esophageal reflux disease without esophagitis Status: Acute Assessment and Plan: continue PPI especially in light of history of guaiac-positive stool in the past (10) Chronic obstructive pulmonary disease: Code(s): J44.9 - Chronic obstructive pulmonary disease, unspecified Status: Acute Assessment and Plan: continue inhalers DS: Summary Hospital Course Hospital Course: 64 y/o female with stage III renal disease type 2 diabetic and hypertension with chronic anemia admitted after syncopal episode at a doctor's office. She is found to be anemic with acute on chronic renal failure and hyperkalemic. With hydration her creatinine returned to her baseline at 2.2 at discharge. Potassium remained normal is 4.7 at discharge.. She did as she has in the past refused blood transfusion and received 1200 mg of IV iron, Epogen on more than 1 occasion, IM B12, and her hemoglobin was 5.3 at discharge. She will have a CBC drawn 1 week. Also BMP drawn 1 week. With her renal insufficiency we did discontinue her metformin . She did have arm p
== END 2020-06-04 16:33 | disposition home or self-care (01) | DRG 683 ==
LOC: ANHED 15:58 → ANHICU 16:40 → ANH3MED 05-30 22:08 → ANHICU 06-07 15:25
PROVIDERS: Internal Medicine; Internal Medicine Gastroenterology; Internal Medicine Nephrology; Physician Assistant; Admitting Provider Family Medicine; Emergency Provider Emergency Medicine; PCP Family Medicine; Visit Provider Internal Medicine
DX: N17.9 Acute kidney failure, unspecified (principal); I13.0 Hypertensive heart and chronic kidney disease with heart failure and stage 1 through stage 4 chronic kidney disease, or unspecified chronic kidney disease; I50.32 Chronic diastolic (congestive) heart failure; E87.5 Hyperkalemia; E11.22 Type 2 diabetes mellitus with diabetic chronic kidney disease; D63.1 Anemia in chronic kidney disease; R55 Syncope and collapse; E11.42 Type 2 diabetes mellitus with diabetic polyneuropathy; R00.1 Bradycardia, unspecified; E11.319 Type 2 diabetes mellitus with unspecified diabetic retinopathy without macular edema; E11.21 Type 2 diabetes mellitus with diabetic nephropathy; N18.30 Chronic kidney disease, stage 3 unspecified; F41.9 Anxiety disorder, unspecified; M19.90 Unspecified osteoarthritis, unspecified site; M47.816 Spondylosis without myelopathy or radiculopathy, lumbar region; I25.10 Atherosclerotic heart disease of native coronary artery without angina pectoris; E78.5 Hyperlipidemia, unspecified; E55.9 Vitamin D deficiency, unspecified; J44.9 Chronic obstructive pulmonary disease, unspecified; D50.9 Iron deficiency anemia, unspecified; I27.20 Pulmonary hypertension, unspecified; I48.0 Paroxysmal atrial fibrillation; F14.90 Cocaine use, unspecified, uncomplicated; Z79.01 Long term (current) use of anticoagulants; I25.2 Old myocardial infarction; Z87.891 Personal history of nicotine dependence; Z95.1 Presence of aortocoronary bypass graft; Z86.73 Personal history of transient ischemic attack (TIA), and cerebral infarction without residual deficits; Z95.820 Peripheral vascular angioplasty status with implants and grafts
CPT/HCPCS: 36415; 70450; 71045; 76775; 80048; 80053; 80069; 81003; 82274; 82306; 82550; 82570; 82607; 82728; 82746; 82948; 83540; 83550; 83880; 83883; 83970; 84132; 84156; 84300; 84443; 84484; 85014; 85018; 85025; 85027; 85380; 85610; 85652; 85730; 85999; 86038; 86039; 86160; 86162; 86334; 86335; 86850; 86900; 86901; 87086; 87088; 93005; 93306; 94640; 96374; 96375; 97110; 97116; 97161; 97166; 97530; 97535; 99285; A9270; J0131; J0610; J1756; J1815; J2405; J3420; J7030; J7070; Q5106

== ENCOUNTER 2020-08-12 12:04 | Emergency (ER) | payer MEDICARE, SELFPAY ==
[2020-08-12 12:05] VITALS: BP 163/75; PULSE 78; RESP 16; TEMP 36.9; O2SAT 100
--- NOTE | 2020-08-12 14:13 | ED.GENADULT ---
HPI - General Adult General Chief complaint: Epistaxis <ADRYAN Minaya Last Filed: 08/12/20 14:20> Stated complaint: nosebleed <ADRYAN Minaya Last Filed: 08/12/20 14:20> Time Seen by Provider: 08/12/20 12:46 <ADRYAN Minaya Last Filed: 08/12/20 14:20> Source: patient <ADRYAN Minaya Last Filed: 08/12/20 14:20> Mode of arrival: ambulatory <ADRYAN Minaya Last Filed: 08/12/20 14:20> Limitations: no limitations <ADRYAN Minaya Last Filed: 08/12/20 14:20> History of Present Illness HPI narrative: Patient is a 64-year-old female who presents to emergency department for evaluation of epistaxis from the left nare patient has been having intermittent bleeding patient had a Covid test which was negative and notes that when they put the probe into her nose she began to have bleeding patient had recent cauterization by ENT who she has a follow-up with on Thursday patient notes that over the last day the bleeding has increased with clots has no other complaints denies any anticoagulant use or other complaints at this time presents in no distress does not appear uncomfortable <ADRYAN Minaya Last Filed: 08/12/20 14:20> Related Data Home medications: Home Medications Medication Instructions Recorded Confirmed albuterol sulfate [Ventolin HFA] 2 puff INHALATION Q4-6H 07/23/19 05/29/20 atorvastatin 20 mg PO DAILY 07/23/19 05/29/20 budesonide-formoterol [Symbicort] 2 puff INHALATION BID 07/23/19 05/29/20 gabapentin 300 mg PO TID 07/23/19 05/29/20 hydrocodone-acetaminophen 5 - 325 tablet PO Q6H PRN 07/23/19 05/29/20 isosorbide mononitrate 15 mg PO DAILY 07/23/19 05/29/20 metoprolol tartrate 25 mg PO BID 07/23/19 05/29/20 <ADRYAN Minaya Last Filed: 08/12/20 14:20> Allergies/adverse reactions: Allergies Allergy/AdvReac Type Severity Reaction Status Date / Time No Known Allergies Allergy Unknown Verified 08/12/20 12:11 <Victor M Briseno PA-C - Last Filed: 08/12/20 14:20> Review of Systems Review of Systems: All systems reviewed & are unremarkable except as noted in HPI and below <Victor M Briseno PA-C - Last Filed: 08/12/20 14:20> [facility] Past Medical History Medical History: Medical History Anxiety Arthritis Chronic anemia She is a patient of Dr. Goodson and has received Venofer and Epogen in the past, she refuses blood transfusion due to mu-ism regions. Chronic back pain On hydrocodone p.r.n. Chronic obstructive pulmonary disease Coronary artery disease With history of [place], status post 2 vessel CABG. Degenerative joint disease (DJD) of lumbar spine (~2019) Diastolic congestive heart failure Echocardiogram in May 2018 showed normal left ventricular size and function with an ejection fraction of 65 to 70%, mildly increased LV thickness, grade 3 diastolic dysfunction, biatrial enlargement, [id number] mitral valve regurgitation and tricuspid valve regurgitation as well as moderate pulmonary hypertension with an estimated peak RVSP of 58 mmHg. Gastroesophageal reflux disease GI bleed (~07/2019) Secondary to AV malformations. Hx of [facility] use of blood thinners Hyperlipidemia Hypertension Inflammatory arthritis (~1996) With positive SANG. She has been seen by toby maker who does not feel at this time that she has lupus. Peripheral vascular disease Tobacco abuse Transient ischemic attack (~2000) Type 2 diabetes mellitus Complicated by peripheral neuropathy, retinopathy, and nephropathy. Vitamin D deficiency <Victor M Briseno PA-C - Last Filed: 08/12/20 14:20> Surgical History Surgical History: Surgical History History of coronary artery bypass graft x 2 (~1999) History of surgical procedure on eye proper using laser For diabetic retinopathy. History of vasc
[2020-08-12] MEDS: LORazepam (*CRX) 0.5 MG TABLET PO (14:33)
== END 2020-08-12 14:42 | disposition home or self-care (01) ==
PROVIDERS: Emergency Provider General Practice; PCP Family Medicine
DX: R04.0 Epistaxis (principal); M19.90 Unspecified osteoarthritis, unspecified site; J44.9 Chronic obstructive pulmonary disease, unspecified; I25.10 Atherosclerotic heart disease of native coronary artery without angina pectoris; I25.2 Old myocardial infarction; I50.30 Unspecified diastolic (congestive) heart failure; I11.0 Hypertensive heart disease with heart failure; E78.5 Hyperlipidemia, unspecified; E11.42 Type 2 diabetes mellitus with diabetic polyneuropathy; E11.51 Type 2 diabetes mellitus with diabetic peripheral angiopathy without gangrene; E11.319 Type 2 diabetes mellitus with unspecified diabetic retinopathy without macular edema; E11.21 Type 2 diabetes mellitus with diabetic nephropathy; K21.9 Gastro-esophageal reflux disease without esophagitis; G89.29 Other chronic pain; M47.816 Spondylosis without myelopathy or radiculopathy, lumbar region; Z95.1 Presence of aortocoronary bypass graft; Z86.73 Personal history of transient ischemic attack (TIA), and cerebral infarction without residual deficits; E55.9 Vitamin D deficiency, unspecified; Z87.891 Personal history of nicotine dependence
CPT/HCPCS: 30901; 99283; A9270

== ENCOUNTER 2021-03-19 09:09 | Outpatient (CLI) | payer MEDICARE, SELFPAY ==
--- NOTE | ~2021-03-19 | MR_ITS ---
EXAMINATION: MR knee LT wo con DATE: 03/19/2021 09:58 INDICATION: Left knee pain TECHNIQUE: Magnetic resonance imaging (MRI) of the left knee was performed without intravenous contra st. Sequences included coronal PD-weighted FSE, coronal PD-weighted FS FSE, sagittal T2-weighted FSE , sagittal PD-weighted FS FSE and axial PD weighted fat saturated FSE. COMPARISON: None. FINDINGS: Medial compartment: Longitudinal horizontal tear extending to the inferior articular surface at the posterior body and me dial aspect of the posterior horn of the medial meniscus. Mild partial-thickness cartilage loss throu ghout the medial compartment with mild chondral surface regularity along the lateral aspect of the ce ntral weightbearing medial femoral condyle and with otherwise smooth chondral surface throughout the remainder of the weightbearing medial femoral condyle and at the medial tibial plateau. Lateral compartment: Lateral meniscus is normal. Mild partial-thickness chondral fissuring along the anteromedial aspect o f the weightbearing lateral femoral condyle. Patellofemoral compartment: Small regions of deep chondral ulceration with cortical irregularity and mild underlying subarticular edema at the superolateral aspect of the lateral patellar facet as well as at the inferior aspect of the medial trochlea. Ligaments and tendons: Anterior and posterior cruciate ligaments are normal. The medial collateral ligament and fibular gaicomo ateral ligament complex are normal. The extensor mechanism is normal. The visualized medial and later al hamstring tendons as well as the iliotibial band are normal. Fluid: Physiologic amount of fluid in the joint space. No loose osteochondral bodies identified. Osseous/other: Approximately 4.2 x 2.3 x 1.8 cm intramedullary lesion in the metaphyseal region of the proximal tibi a demonstrating peripheral serpiginous pattern of increased T2 signal surrounding central marrow fat signal most consistent with a bone infarct. No other bone infarct appreciated. No fracture or patholo gic marrow replacing process. Prominent edema in the superficial suprapatellar fat pad which can be s een with fat pad impingement syndrome. IMPRESSION: 1. Longitudinal horizontal medial meniscal tear centered at the junction of the body and posterior ho rn. 2. Mild osteoarthritis with small regions of high-grade chondromalacia in the patellofemoral compartm ent and with regions of moderate grade chondromalacia in the medial and lateral compartments. 3. Prominent edema in the superficial suprapatellar fat pad which can be seen with fat pad impingemen t syndrome. 4. 4.2 x 2.3 x 1.8 cm bone infarct in the proximal metaphyseal region of the left tibia. Reviewed, dictated and finalized at location A. IMPRESSION: 1. Longitudinal horizontal medial meniscal tear centered at the junction of the body and posterior horn. 2. Mild osteoarthritis with small regions of high-grade chondromalacia in the p atellofemoral compartment and with regions of moderate grade chondromalacia in the medial and lateral compartments. 3. Prominent edema in the superficial suprapatellar fat pad which can be seen w ith fat pad impingement syndrome. 4. 4.2 x 2.3 x 1.8 cm bone infarct in the proximal metaphyseal region of the le ft tibia.
== END 2021-03-19 09:10 ==
PROVIDERS: PCP Internal Medicine; Visit Provider Nurse Practitioner Family
DX: M25.562 Pain in left knee (principal); S83.242A Other tear of medial meniscus, current injury, left knee, initial encounter; M17.11 Unilateral primary osteoarthritis, right knee; M94.262 Chondromalacia, left knee; M79.89 Other specified soft tissue disorders; M89.8X6 Other specified disorders of bone, lower leg
CPT/HCPCS: 73721

== ENCOUNTER 2021-03-31 09:59 | Emergency (ER) | payer MEDICARE, MEDICAID, SELFPAY ==
--- NOTE | ~2021-03-31 | US_ITS ---
EXAMINATION: US arterial duplex LE RT DATE: 03/31/2021 14:05 INDICATION: Peripheral vascular disease. Right lower limb pain and swelling. TECHNIQUE: Multiple grayscale and Doppler ultrasound images of the right lower limb were obtained. COMPARISON: Right knee radiographs 03/31/2021 FINDINGS: Peak systolic velocity is 119 cm/s in right common femoral artery and 118 cm/s in right pro addison femoral artery. There is total occlusion of right superficial femoral artery. There is a stent in right superficial femoral artery. Peak systolic velocity is 31 cm/s in proximal right popliteal ar deborah and 27 cm/s in distal popliteal artery. Peak systolic velocity is 15 cm/s in right anterior tibi al artery, 22 cm/s in peroneal artery, and 16 cm/s posterior tibial artery. IMPRESSION: 1. Total occlusion of right superficial femoral artery with reconstitution of flow in right popliteal artery. Reviewed, dictated and finalized at location A. IMPRESSION: 1. Total occlusion of right superficial femoral artery with reconstitution of f low in right popliteal artery.
--- NOTE | ~2021-03-31 | XR_ITS ---
XR foot RT min 3V 03/31/2021 12:14 Indication: Right foot pain. No known injury. Procedure: 4 views right foot Comparison: No prior studies for comparison. Findings: No fracture, subluxation or dislocation. Osteopenia. Lisfranc joint intact. Anatomic alignm ent. No focal soft tissue abnormality. No foreign bodies. Small degenerative calcaneal enthesophyte. Impression: 1: No acute fracture. Reviewed, dictated and finalized at location A. Impression: 1: No acute fracture.
--- NOTE | ~2021-03-31 | US_ITS ---
EXAMINATION:US venous doppler LE RT INDICATION:Right leg pain and swelling TECHNIQUE: Multiple grayscale, color flow and Doppler images of the right lower extremity deep venous systems were obtained and reviewed. COMPARISON:06/03/2019 FINDINGS: The common femoral, superficial femoral and popliteal veins demonstrate normal respiratory variation, augmentation and compressibility. Color flow is also seen within the posterior tibial, pe roneal, greater saphenous and profunda veins. IMPRESSION: 1: No lower extremity deep venous thrombosis. Reviewed, dictated and finalized at location A.
--- NOTE | ~2021-03-31 | XR_ITS ---
XR knee RT min 4V 03/31/2021 12:14 Indication: Right knee pain Procedure: 5 views right knee Comparison: 01/14/2021 Findings: Moderate osteoarthritis of the right knee. Small joint effusion. There is chondrocalcinosis . Vascular stent present posterior to the femur. Normal mineralization. No acute fracture. Impression: 1: Moderate osteoarthritis of the right knee. Reviewed, dictated and finalized at location A. Impression: 1: Moderate osteoarthritis of the right knee.
[2021-03-31 11:29] VITALS: BP 158/55; PULSE 65; RESP 16; TEMP 35.6; O2SAT 100
[2021-03-31 12:05] LABS: Basophils Percent Auto 0.3 % (0.2-1.2); Eosinophils Absolute Auto 0.2 K/mm3 (0-0.3); Eosinophils Percent Auto 2.4 % (0-4.4); Hematocrit 36.1 % (37.0-47.0); Hemoglobin 10.9 g/dL (12.0-15.0); Immature Granulocyte Absolute 0.03 K/mm3 (0.00-0.031); Immature Granulocyte Percent A 0.3 % (0-0.5); Lymphocytes Absolute Auto 2.19 K/mm3 (0.9-3.2); Lymphocytes Percent Auto 23.6 % (18.3-44.2); Mean Corpuscular HGB Conc 30.2 g/dl (32-36); Mean Corpuscular Hemoglobin 27.7 pg (26-34); Mean Corpuscular Volume 91.9 fl (80-100); Mean Platelet Volume 9.8 fl (7.4-10.4); Monocytes Absolute Auto 0.6 K/mm3 (0.1-0.6); Monocytes Percent Auto 6.9 % (2.6-8.5); Neutrophils Absolute Auto 6.2 K/mm3 (1.3-6.7); Neutrophils Percent Auto 66.5 % (45.5-73.1); Platelet Count Result 305 k/mm3 (150-375); Red Blood Count 3.93 M/mm3 (4.2-5.4); Red Cell Distribution Width 15.7 % (11.5-14.5); White Blood Count 9.3 K/mm3 (4.5-10.0)
--- NOTE | 2021-03-31 12:05 | ED.EXTPRO ---
HPI - Extremity Problem General Chief complaint: Extremity Problem,Nontraumatic Stated complaint: rt leg pain, denies injury Time Seen by Provider: 03/31/21 11:39 Source: patient Mode of arrival: EMS Limitations: no limitations History of Present Illness HPI Narrative: This is a 65-year-old female that presents to the emergency department for right leg pain since last night. No known injury or trauma. Reports the pain is crampy in nature. It radiates from her foot all the way up to her groin. She has not taken anything for pain. Denies fever, erythema, edema, decreased range of motion or numbness. Related Data Home Medications Medication Instructions Recorded Confirmed albuterol sulfate [Ventolin HFA] 2 puff INHALATION Q4-6H 07/23/19 01/14/21 atorvastatin 20 mg PO DAILY 07/23/19 01/14/21 budesonide-formoterol [Symbicort] 2 puff INHALATION BID 07/23/19 01/14/21 gabapentin 300 mg PO TID 07/23/19 01/14/21 hydrocodone-acetaminophen 5 - 325 tablet PO Q6H PRN 07/23/19 01/14/21 isosorbide mononitrate 15 mg PO DAILY 07/23/19 01/14/21 metoprolol tartrate 25 mg PO BID 07/23/19 01/14/21 Allergies Allergy/AdvReac Type Severity Reaction Status Date / Time No Known Allergies Allergy Unknown Verified 03/31/21 11:50 Review of Systems Review of Systems: CONSTITUTIONAL: Denies fever SKIN: Denies rash MUSCULOSKELETAL: Reports joint pain, and myalgia. NEUROLOGIC: Denies numbness All systems reviewed & are unremarkable except as noted in HPI and below PMFSH Past Medical History Medical History (Updated 03/31/21 @ 17:53 by Rossy Sawyer PA-C) Anxiety Arthritis Chronic anemia She is a patient of Dr. Goodson and has received Venofer and Epogen in the past, she refuses blood transfusion due to gnosticist regions. Chronic back pain On hydrocodone p.r.n. Chronic obstructive pulmonary disease Coronary artery disease With history of [place], status post 2 vessel CABG. Degenerative joint disease (DJD) of lumbar spine (~2019) Diastolic congestive heart failure Echocardiogram in May 2018 showed normal left ventricular size and function with an ejection fraction of 65 to 70%, mildly increased LV thickness, grade 3 diastolic dysfunction, biatrial enlargement, [id number] mitral valve regurgitation and tricuspid valve regurgitation as well as moderate pulmonary hypertension with an estimated peak RVSP of 58 mmHg. Gastroesophageal reflux disease GI bleed (~07/2019) Secondary to AV malformations. Hx of [facility] use of blood thinners Hyperlipidemia Hypertension Inflammatory arthritis (~1996) With positive SANG. She has been seen by regional property manager who does not feel at this time that she has lupus. Left knee pain Peripheral vascular disease Tobacco abuse Transient ischemic attack (~2000) Type 2 diabetes mellitus Complicated by peripheral neuropathy, retinopathy, and nephropathy. Vitamin D deficiency Surgical History Surgical History History of coronary artery bypass graft x 2 (~1999) History of surgical procedure on eye proper using laser For diabetic retinopathy. History of vascular surgery Right lower extremity stents. Family History Family History Mother Diabetes mellitus Family history of arthritis Family history of cardiovascular disease Hypertension Sibling Diabetes mellitus Family history of arthritis Family history of cardiovascular disease Hypertension Kidney failure Grandparent Diabetes mellitus Social History Social History Social History: Surrogate decision maker: Alayna Castle, daughter. Code status: Full code. Smoking packs per day: 0.5 Smoking cigarettes per day: 10.0 Years smoked: 50 Smoking pack-years: 25.00 Smoking status: Former smoker Tobacco type: cigarettes Smoking end date: 05/29/20 Alcohol intake: current Drinks p
[2021-03-31 12:15] LABS: INR 1.1; Prothrombin Time 13.7 Seconds (11.1-14.7)
[2021-03-31 12:16] LABS: Partial Thromboplastin Time 32.2 SECONDS (22.3-36.8)
[2021-03-31 12:18] LABS: Anion Gap 10 mmol/L (8-16); Blood Urea Nitrogen 54 mg/dL (7-17); CRP 2.6 mg/dL (<1.0); Calcium 10.3 mg/dL (8.4-10.2); Carbon Dioxide 25 mmol/L (22-30); Chloride 104 mmol/L (98-107); Estimated CRCL calculation 36 ml/min; Estimated Glomerular Filt Rate 34; Glucose 124 mg/dL (65-110); Magnesium 2.5 mg/dL (1.6-2.3); Potassium 5.1 mmol/L (3.4-5.0); Sodium 139 mmol/L (137-145)
[2021-03-31 12:39] LABS: Erythrocyte Sedimentation Rate 133 mm/hr (0-20)
[2021-03-31] MEDS: ACETAMINOPHEN 500 MG TABLET 1000 MG PO (12:44)
[2021-03-31 13:40] VITALS: BP 149/89; PULSE 84; RESP 16; O2SAT 98
--- NOTE | 2021-03-31 16:53 | PC.NURSE ---
star agrawal, added ck
[2021-03-31 17:03] LABS: Creatine Kinase 121 U/L (30-135)
[2021-03-31 17:46] VITALS: BP 152/85; PULSE 86; RESP 16; O2SAT 97
== END 2021-03-31 18:18 | disposition home or self-care (01) ==
PROVIDERS: Physician Assistant; Emergency Provider Emergency Medicine; PCP Internal Medicine
DX: I70.221 Atherosclerosis of native arteries of extremities with rest pain, right leg (principal); E87.5 Hyperkalemia; N18.32 Chronic kidney disease, stage 3b; I13.0 Hypertensive heart and chronic kidney disease with heart failure and stage 1 through stage 4 chronic kidney disease, or unspecified chronic kidney disease; E11.22 Type 2 diabetes mellitus with diabetic chronic kidney disease; D64.9 Anemia, unspecified; J44.9 Chronic obstructive pulmonary disease, unspecified; I50.30 Unspecified diastolic (congestive) heart failure; E11.51 Type 2 diabetes mellitus with diabetic peripheral angiopathy without gangrene; K21.9 Gastro-esophageal reflux disease without esophagitis; E78.5 Hyperlipidemia, unspecified; Z86.73 Personal history of transient ischemic attack (TIA), and cerebral infarction without residual deficits; E11.42 Type 2 diabetes mellitus with diabetic polyneuropathy; E11.319 Type 2 diabetes mellitus with unspecified diabetic retinopathy without macular edema; E11.21 Type 2 diabetes mellitus with diabetic nephropathy; E55.9 Vitamin D deficiency, unspecified; Z87.891 Personal history of nicotine dependence; M19.90 Unspecified osteoarthritis, unspecified site; M17.11 Unilateral primary osteoarthritis, right knee; Z79.82 Long term (current) use of aspirin; Z79.4 Long term (current) use of insulin; Z95.1 Presence of aortocoronary bypass graft
CPT/HCPCS: 36415; 73564; 73630; 80048; 82550; 83735; 85025; 85610; 85652; 85730; 86140; 93926; 93971; 99284; A9270

== ENCOUNTER 2022-08-07 21:43 | Emergency (ER) | payer MEDICARE, MEDICAID, SELFPAY ==
--- NOTE | ~2022-08-07 | XR_ITS ---
EXAMINATION: XR chest 2V DATE: 08/08/2022 02:36 INDICATION: Cough. TECHNIQUE: Frontal and lateral views of the chest were obtained. COMPARISON: Chest single view 05/29/2020 FINDINGS: There is no pneumonia, pleural effusion, pneumothorax. The heart size is normal. Median chase rnotomy wires are noted. IMPRESSION: 1. No acute cardiopulmonary disease. Reviewed, dictated and finalized at location A. BIN TENDER
[2022-08-07 22:09] VITALS: BP 175/57; PULSE 88; RESP 16; TEMP 37.6; O2SAT 100
[2022-08-07 22:15] VITALS: TEMP 38.2
--- NOTE | 2022-08-07 22:30 | PC.NURSE ---
spoke with dr gudino about patient as there was no protocol for her complaint states to ordercbc and cmp at this time no other orders
[2022-08-08] VITALS (12 sets, daily range): BP systolic 193; BP diastolic 72; PULSE 91–103; RESP 12–30; TEMP 37.6–39.3
--- NOTE | 2022-08-08 00:30 | PC.NURSE ---
patient ambulates per self to bathroom in waiting room no sign of distress
--- NOTE | 2022-08-08 02:11 | ECG_ITS ---
Measurements Intervals [place] Rate: 96 P: 46 [place]: 191 QRS: 7 QRSD: 84 T: 44 QT: 367 QTc: 464 Interpretive Statements SINUS RHYTHM MODERATE ST DEPRESSION [0.05+ mV ST DEPRESSION] CONSIDER ISCHEMIA COMPARED TO ECG 05/31/2020 09:07:03 ST SEGMENT DEPRESSION IS SOMEWHAT IMPROVED BUT LARGELY UNCHANGED Electronically Signed On 08-08-2022 10:19:27 [employer]ANDSCAPE CREW MEMBER by Mark Arnold M.D.
[2022-08-08] MEDS: methylPREDNISolone SOD SUCC 125 MG VIAL IV PUSH (02:25)
[2022-08-08 02:34] LABS: Basophils Percent Auto 0.4 % (0.2-1.2); Eosinophils Absolute Auto 0.1 K/mm3 (0-0.3); Eosinophils Percent Auto 1.1 % (0-4.4); Immature Granulocyte Absolute 0.06 K/mm3 (0.00-0.031); Immature Granulocyte Percent A 0.8 % (0-0.5); Lymphocytes Absolute Auto 1.12 K/mm3 (0.9-3.2); Lymphocytes Percent Auto 15.8 % (18.3-44.2); Mean Corpuscular HGB Conc 30.8 g/dl (32-36); Mean Corpuscular Hemoglobin 28.6 pg (26-34); Mean Corpuscular Volume 93.1 fl (80-100); Mean Platelet Volume 9.9 fl (7.4-10.4); Monocytes Absolute Auto 0.5 K/mm3 (0.1-0.6); Monocytes Percent Auto 7.3 % (2.6-8.5); Neutrophils Absolute Auto 5.3 K/mm3 (1.3-6.7); Neutrophils Percent Auto 74.6 % (45.5-73.1); Platelet Count Result 212 k/mm3 (150-375); Red Blood Count 4.19 M/mm3 (4.2-5.4); Red Cell Distribution Width 18.3 % (11.5-14.5); White Blood Count 7.1 K/mm3 (4.5-10.0)
[2022-08-08 02:42] LABS: INR 1.2; Prothrombin Time 14.5 Seconds (11.1-14.7)
[2022-08-08 02:43] LABS: Partial Thromboplastin Time 32.3 SECONDS (22.3-36.8)
--- NOTE | 2022-08-08 02:53 | ED.GENADULT ---
HPI - General Adult General Chief complaint: Allergic Reaction Stated complaint: thrush facial swelling Time Seen by Provider: 08/08/22 02:03 Source: patient Mode of arrival: ambulatory Limitations: no limitations History of Present Illness HPI narrative: 66-year-old female presents today with complaints of facial swelling, cough, sore throat, and fever. Patient states she was seen at [facility] yesterday due to a sore throat. She was evaluated but no swabs were done and sent home with [facility]. Patient states she went to pharmacy picked up her Keflex went home and family had noticed facial swelling prior to her taking any antibiotics. Patient states she did have a cough yesterday but now she still has a wet cough Also with complaint of chills, body aches, unknown if fever. Patient denies any known sick contacts. She denies any chills. Or shortness of breath at current time. States she does have a history of CHF denies leg swelling. Patient denies any known allergies. She recently had surgery over at [place] to her right and states she is healing well from that. She has a follow-up appointment tomorrow with the doctor Related Data Home Medications Medication Instructions Recorded Confirmed albuterol sulfate 90 mcg/actuation 2 puff inhalation Q4-6H 07/23/19 10/07/21 aerosol inhaler (Ventolin HFA) atorvastatin 20 mg tablet 20 mg PO DAILY 07/23/19 10/07/21 gabapentin 300 mg capsule 300 mg PO TID 07/23/19 10/07/21 isosorbide mononitrate 30 mg 15 mg PO DAILY 07/23/19 10/07/21 tablet,extended release 24 hr metoprolol tartrate 25 mg tablet 25 mg PO BID 07/23/19 10/07/21 apixaban 2.5 mg tablet (Eliquis) 2.5 mg PO BID 08/19/21 10/07/21 alprazolam 0.5 mg tablet (Xanax) 0.5 mg PO DAILY 04/14/22 fluticasone fur. 100 mcg-umeclid 1 inh inhalation DAILY 04/14/22 62.5 mcg-vilant 25 mcg inhalat.powder (Trelegy Ellipta) Allergies Allergy/AdvReac Type Severity Reaction Status Date / Time No Known Allergies Allergy Unknown Verified 04/14/22 10:26 Review of Systems Review of Systems: CONSTITUTIONAL: Chills. Denies fever or sweats. EYES: Denies visual changes, redness, or discharge. ENT: Sore throat, facial swelling, odynophagia. Denies rhinorrhea, congestion or otalgia. CARDIOVASCULAR: Denies chest pain, palpitations, or edema. RESPIRATORY: Wet productive cough. Denies dyspnea. GASTROINTESTINAL: Denies abdominal pain, nausea, vomiting, or diarrhea. GENITOURINARY: Denies dysuria or hematuria. SKIN: Denies rash or itching. MUSCULOSKELETAL: Denies back pain, joint pain, or myalgia. NEUROLOGIC: Denies headache, numbness, dizziness, or weakness. PSYCHIATRIC: Denies anxiety or depression. [facility] Past Medical History Medical History Anxiety Arthritis Chronic anemia She is a patient of Dr. Goodson and has received Venofer and Epogen in the past, she refuses blood transfusion due to jew regions. Chronic back pain On hydrocodone p.r.n. Chronic obstructive pulmonary disease Coronary artery disease With history of [place], status post 2 vessel CABG. Degenerative joint disease (DJD) of lumbar spine (~2019) Diastolic congestive heart failure Echocardiogram in May 2018 showed normal left ventricular size and function with an ejection fraction of 65 to 70%, mildly increased LV thickness, grade 3 diastolic dysfunction, biatrial enlargement, [id number] mitral valve regurgitation and tricuspid valve regurgitation as well as moderate pulmonary hypertension with an estimated peak RVSP of 58 mmHg. DJD of shoulder Gastroesophageal reflux disease GI bleed (~07/2019) Secondary to AV malformations. Hx of [facility] use of blood thinners Hyperlipidemia Hypertension Inflammatory arthritis (~1996) With positive SANG. She has been seen by assembly line robot operator who does not feel at this time that she has lupus. Left knee DJD Left knee pain Peripheral vascular disease Right knee DJD To
[2022-08-08 03:05] LABS: NT Pro B Type Natriuretic Pept 1390 pg/mL (5-100)
[2022-08-08 03:10] LABS: Alanine Aminotransferase 20 U/L (6-35); Albumin Level 4.4 g/dL (3.5-5.1); Alkaline Phosphatase 193 U/L (38-126); Anion Gap 11 mmol/L (8-16); Aspartate Amino Transferase 40 U/L (14-36); Bilirubin,Total 0.6 mg/dL (0.2-1.3); Blood Urea Nitrogen 55 mg/dL (7-17); CRP 2.6 mg/dL (<1.0); Calcium 9.4 mg/dL (8.4-10.2); Carbon Dioxide 23 mmol/L (22-30); Chloride 102 mmol/L (98-107); Estimated Glomerular Filt Rate 39; Glucose 313 mg/dL (65-110); Potassium 4.5 mmol/L (3.4-5.0); Sodium 136 mmol/L (137-145)
[2022-08-08 03:35] LABS: Strep Group A RT-PCR NOT DETECTED (Negative)
[2022-08-08 03:45] LABS: Influenza A QL RT-PCR Negative (Negative); Influenza B QL RT-PCR Negative (Negative); RSV RNA, RT-PCR Negative (Negative); SARS-CoV-2 RNA PCR Negative
[2022-08-08 03:51] LABS: Lactic Acid Reflex 1.3 mmol/L (0.7-2.0)
[2022-08-08 05:06] LABS: Add Urine Microscopic? YES; Appearance Urine Clear (Clear); Bilirubin Urine Negative (Negative); Blood Urine Trace-Intact (Negative); Color Urine Light Yellow (Yellow); Glucose Urine UA Negative (Negative); Ketones Urine Trace mg/dL (Negative); Leukocyte Esterase Ur Negative LEU/UL (Negative); Nitrate Urine Negative (Negative); Protein Urine 2+ mg/dL (Negative); Urobilinogen Urine 0.2 mg/dL (<2.0)
[2022-08-08 05:13] LABS: Squamous Epithelial Cell Urine Rare /hpf (Few); WBC Urine 0-3 /hpf
--- NOTE | 2022-08-08 07:01 | PC.NURSE ---
Pt ambulated with walker and SpO2 monitor. Pt tlerated walk well. Spo2 maintained above 94% on RA during ambulation.
[2022-08-08] MEDS: FLUCONAZOLE 100 MG TABLET PO (07:02)
[2022-08-08 07:07] LABS: Troponin I 0.018 ng/mL (0.000-0.034)
== END 2022-08-08 07:50 | disposition home or self-care (01) ==
PROVIDERS: Nurse Practitioner Family; Emergency Provider Emergency Medicine; PCP Internal Medicine
DX: R05.9 Cough, unspecified (principal); B37.0 Candidal stomatitis; Z20.822 Contact with and (suspected) exposure to COVID-19; D64.9 Anemia, unspecified; J44.9 Chronic obstructive pulmonary disease, unspecified; I50.30 Unspecified diastolic (congestive) heart failure; I25.10 Atherosclerotic heart disease of native coronary artery without angina pectoris; I25.2 Old myocardial infarction; E78.5 Hyperlipidemia, unspecified; I11.0 Hypertensive heart disease with heart failure; E11.42 Type 2 diabetes mellitus with diabetic polyneuropathy; E11.319 Type 2 diabetes mellitus with unspecified diabetic retinopathy without macular edema; E11.21 Type 2 diabetes mellitus with diabetic nephropathy; E11.51 Type 2 diabetes mellitus with diabetic peripheral angiopathy without gangrene; I73.9 Peripheral vascular disease, unspecified; M17.0 Bilateral primary osteoarthritis of knee; M19.019 Primary osteoarthritis, unspecified shoulder; E55.9 Vitamin D deficiency, unspecified; F41.9 Anxiety disorder, unspecified; Z95.1 Presence of aortocoronary bypass graft; Z87.891 Personal history of nicotine dependence; Z79.01 Long term (current) use of anticoagulants; Z79.4 Long term (current) use of insulin; R94.31 Abnormal electrocardiogram [ECG] [EKG]
CPT/HCPCS: 36415; 71046; 80053; 81001; 83605; 83880; 84484; 85025; 85610; 85730; 86140; 87040; 87637; 87651; 93005; 96374; 96375; 99284; A9270; J0131; J2930

== ENCOUNTER 2023-11-15 00:23 | Emergency (ER) | payer MEDICARE, MEDICAID, SELFPAY ==
[2023-11-15 00:25] VITALS: BP 148/66; PULSE 86; RESP 19; TEMP 36.3; O2SAT 96
--- NOTE | 2023-11-15 01:17 | ED.EPISTAXIS ---
HPI - Epistaxis General Chief complaint: Epistaxis Stated complaint: Nose bleed Time Seen by Provider: 11/15/23 01:07 Source: patient Mode of arrival: EMS Limitations: no limitations History of Present Illness HPI Narrative: This is a 59-year-old female that presents to the emergency department for nose bleed present since yesterday afternoon. Reports she had got it to stop for a little while, but it started to bleed again tonight. She does have history of nose bleeds and sees Dr. Trivedi for this. Patient takes apixaban. Related Data Home Medications Medication Instructions Recorded Confirmed albuterol sulfate 90 mcg/actuation 2 puff inhalation Q4-6H 07/23/19 10/07/21 aerosol inhaler (Ventolin HFA) atorvastatin 20 mg tablet 20 mg PO DAILY 07/23/19 10/07/21 gabapentin 300 mg capsule 300 mg PO TID 07/23/19 10/07/21 isosorbide mononitrate 30 mg 15 mg PO DAILY 07/23/19 10/07/21 tablet,extended release 24 hr metoprolol tartrate 25 mg tablet 25 mg PO BID 07/23/19 10/07/21 apixaban 2.5 mg tablet (Eliquis) 2.5 mg PO BID 08/19/21 10/07/21 alprazolam 0.5 mg tablet (Xanax) 0.5 mg PO DAILY 04/14/22 fluticasone fur. 100 mcg-umeclid 1 inh inhalation DAILY 04/14/22 62.5 mcg-vilant 25 mcg inhalat.powder (Trelegy Ellipta) Allergies Allergy/AdvReac Type Severity Reaction Status Date / Time No Known Allergies Allergy Unknown Verified 11/15/23 00:31 Review of Systems Review of Systems: CONSTITUTIONAL: Denies fever ENT: Reports epistaxis All systems reviewed & are unremarkable except as noted in HPI and below PMFSH Past Medical History Medical History Anxiety Arthritis Chronic anemia She is a patient of Dr. Goodson and has received Venofer and Epogen in the past, she refuses blood transfusion due to yazidism regions. Chronic back pain On hydrocodone p.r.n. Chronic obstructive pulmonary disease Coronary artery disease With history of [place], status post 2 vessel CABG. Degenerative joint disease (DJD) of lumbar spine (~2019) Diastolic congestive heart failure Echocardiogram in May 2018 showed normal left ventricular size and function with an ejection fraction of 65 to 70%, mildly increased LV thickness, grade 3 diastolic dysfunction, biatrial enlargement, [id number] mitral valve regurgitation and tricuspid valve regurgitation as well as moderate pulmonary hypertension with an estimated peak RVSP of 58 mmHg. DJD of shoulder Gastroesophageal reflux disease GI bleed (~07/2019) Secondary to AV malformations. Hx of [facility] use of blood thinners Hyperlipidemia Hypertension Inflammatory arthritis (~1996) With positive SANG. She has been seen by fast food attendant who does not feel at this time that she has lupus. Left knee DJD Left knee pain Peripheral vascular disease Right knee DJD Tobacco abuse Transient ischemic attack (~2000) Type 2 diabetes mellitus Complicated by peripheral neuropathy, retinopathy, and nephropathy. Vitamin D deficiency Surgical History Surgical History History of coronary artery bypass graft x 2 (~1999) History of surgical procedure on eye proper using laser For diabetic retinopathy. History of vascular surgery Right lower extremity stents. Family History Family History Mother Diabetes mellitus Family history of arthritis Family history of cardiovascular disease Hypertension Sibling Diabetes mellitus Family history of arthritis Family history of cardiovascular disease Hypertension Kidney failure Grandparent Diabetes mellitus Social History Social History Social History: Surrogate decision maker: Alayna Castle, daughter. Code status: Full code. Smoking packs per day: 0.5 Smoking cigarettes per day: 10.0 Years smoked: 50 Smoking pack-y
[2023-11-15 01:43] LABS: Basophils Absolute Auto 0.1 K/mm3 (0.0-0.1); Basophils Percent Auto 0.4 % (0.2-1.2); Eosinophils Absolute Auto 0.3 K/mm3 (0-0.3); Eosinophils Percent Auto 2.3 % (0-4.4); Hematocrit 29.1 % (37.0-47.0); Hemoglobin 8.6 g/dL (12.0-15.0); Immature Granulocyte Absolute 0.07 K/mm3 (0.00-0.031); Immature Granulocyte Percent A 0.6 % (0-0.5); Lymphocytes Absolute Auto 1.89 K/mm3 (0.9-3.2); Mean Corpuscular HGB Conc 29.6 g/dl (32-36); Mean Corpuscular Hemoglobin 29.2 pg (26-34); Mean Corpuscular Volume 98.6 fl (80-100); Monocytes Absolute Auto 0.9 K/mm3 (0.1-0.6); Monocytes Percent Auto 8.3 % (2.6-8.5); Neutrophils Absolute Auto 7.9 K/mm3 (1.3-6.7); Neutrophils Percent Auto 71.4 % (45.5-73.1); Platelet Count Result 278 k/mm3 (150-375); Red Blood Count 2.95 M/mm3 (4.2-5.4); Red Cell Distribution Width 15.5 % (11.5-14.5); White Blood Count 11.1 K/mm3 (4.5-10.0)
[2023-11-15 01:45] VITALS: BP 124/71; RESP 15; O2SAT 96
[2023-11-15 01:47] LABS: Anion Gap 8 mmol/L (8-16); Blood Urea Nitrogen 49 mg/dL (7-17); Calcium 9.3 mg/dL (8.4-10.2); Carbon Dioxide 25 mmol/L (22-30); Chloride 106 mmol/L (98-107); Estimated CRCL calculation 36 ml/min; Estimated Glomerular Filt Rate 39; Glucose 173 mg/dL (65-110); Magnesium 2.1 mg/dL (1.6-2.3); Sodium 139 mmol/L (137-145)
[2023-11-15] MEDS: POTASSIUM CHLORIDE 20 MEQ ER TABLET 40 MEQ PO (02:07)
[2023-11-15 02:11] LABS: Anisocytosis 1+; Hypochromasia 2+; Platelet Estimate Adequate (Adequate); Schistocytes None Seen
[2023-11-15] MEDS: ACETAMINOPHEN 500 MG TABLET 1000 MG PO (02:30)
== END 2023-11-15 04:02 | disposition home or self-care (01) ==
PROVIDERS: Emergency Provider Physician Assistant; PCP Family Medicine
DX: R04.0 Epistaxis (principal); E87.6 Hypokalemia; D64.9 Anemia, unspecified; I25.10 Atherosclerotic heart disease of native coronary artery without angina pectoris; I11.0 Hypertensive heart disease with heart failure; I50.30 Unspecified diastolic (congestive) heart failure; J44.9 Chronic obstructive pulmonary disease, unspecified; E11.42 Type 2 diabetes mellitus with diabetic polyneuropathy; E11.319 Type 2 diabetes mellitus with unspecified diabetic retinopathy without macular edema; E11.21 Type 2 diabetes mellitus with diabetic nephropathy; E78.5 Hyperlipidemia, unspecified; E55.9 Vitamin D deficiency, unspecified; K21.9 Gastro-esophageal reflux disease without esophagitis; M17.0 Bilateral primary osteoarthritis of knee; Z86.73 Personal history of transient ischemic attack (TIA), and cerebral infarction without residual deficits; Z95.1 Presence of aortocoronary bypass graft; Z87.891 Personal history of nicotine dependence; Z79.01 Long term (current) use of anticoagulants; Z79.4 Long term (current) use of insulin
CPT/HCPCS: 30901; 36415; 80048; 83735; 85025; 85055; 99283; A9270